=== PATIENT | male | born 1970 | race Caucasian/White ===

== ENCOUNTER 2020-12-17 14:22 | Inpatient (IN) | payer MEDICAID, OTHER ==
[~2020-12-17] VITALS: Ht 180.3 cm; Wt 80.3 kg
[~2020-12-17 14:22] MED LIST: HYDR-3972 PO; dextrose 50%-water 50ml dispensing syringe IV ONE
[2020-12-17] MEDS ORDERED: acetaminophen 650mg rectal suppository RC STA (15:05)
[2020-12-17] MEDS ORDERED: normal saline 1000ML IV soln IV ONE (15:05)
--- NOTE | 2020-12-17 15:10 | NUR ---
PT MOVED FROM BED 15 AFTER GUPPY BREATHING, PT IN BED 3, RT PAGED AND AT BEDSIDE.
--- NOTE | 2020-12-17 15:14 | NUR ---
PT BAGGED 100%, BP 165/141 133 81% BAGGED AT 100%. DR GARZA ORDERED ETOMIDATE 20 SUCS 100 1516 ETOMIDATE 20MG, SUCS 100 1518 INTUBATE WITH BOUGIE 1519 INTUBATED 8 TUBE, 23 AT GUMS, BILATERAL BREATH SOUNDS.
[2020-12-17] MEDS ORDERED: piperacillin/tazo 3.375gm/50ml 50 ML IV ONE (15:20)
[2020-12-17] MEDS ORDERED: normal saline 1000ML IV soln IVB ONE (15:25)
[2020-12-17] MEDS ORDERED: NORepinephrine 8mg/ 250ml NS 250 ML IV ONE ×3 (15:33→19:31)
--- NOTE | 2020-12-17 15:35 | NUR ---
LAURY NEAL TRIED TO DO EXAM
[2020-12-17 15:43] LABS: ABG BASE EXCESS -7.1 mmol/L (-2.0-2.0); ABG HCO3 19.6 mmol/L (22.0-26.0); ABG OXYGEN SATURATION 93.1 % (94-97); ABG PCO2 (T) 43.8 mmHg (35.0-48.0); ABG PO2 (T) 78.6 mmHg (75.0-100.0); FCOHb 0.3 % (0.0-3.9); FMetHb 0.5 % (0.0-1.5); FO2Hb 92.4 % (94-97); PEEP 5 cm H2O; RESPIRATORY RATE 18 b/min; TIDAL VOLUME 450 mL; TOTAL HEMOGLOBIN 12.9 G/dl (14.0-18.0)
--- NOTE | 2020-12-17 16:05 | NUR ---
VERBAL ORDER BY DR MILLER FOR PROPOPHOL GTT FOR SEDATION.
[2020-12-17] MEDS ORDERED: propofol 1000mg/100ml bottle 100 ML IV ONE ×2 (16:09→19:02)
[2020-12-17 16:25] LABS: HEMATOCRIT 42.8 % (42.0-52.0); HEMOGLOBIN 14.2 g/dl (14.0-17.9); MEAN CORPUSCULAR HGB CONC 33.2 g/dL (33.0-36.5); NEUTROPHILS # (AUTO) 3.7 X10'3 (1.8-7.7); WHITE BLOOD COUNT 6.7 X10'3 (4.5-11.0)
[2020-12-17 16:26] LABS: BASOPHILS % (AUTO) 0.6 % (0-1); EOSINOPHILS % (AUTO) 0.4 % (0-6); LYMPHOCYTES # (AUTO) 2.4 X10'3 (1.1-4.8); LYMPHOCYTES % (AUTO) 35.5 % (21-51); MEAN CORPUSCULAR HEMOGLOBIN 30.7 PG (27.0-31.0); MEAN CORPUSCULAR VOLUME 92.4 FL (78-98); MONOCYTES # (AUTO) 0.5 X10'3 (0-0.9); NEUTROPHILS % (AUTO) 55.5 % (42-75); PLATELET COUNT 214 X10'3 (140-440); RED BLOOD COUNT 4.63 X10'6 (4.70-6.10); RED CELL DISTRIBUTION WIDTH 15.2 % (11.5-14.5)
[2020-12-17 16:34] LABS: ALANINE AMINOTRANSFERASE 154 U/L (12-78); ALBUMIN 3.8 G/DL (3.4-5.0); ALKALINE PHOSPHATASE 79 IU/L (46-116); ANION GAP 12 (8-16); ASPARTATE AMINO TRANSFERASE 95 U/L (10-37); BILIRUBIN,TOTAL 0.5 MG/DL (0.1-1.0); BLOOD UREA NITROGEN 30 MG/DL (7-18); BUN/CREATININE RATIO 14.8 (5.4-32.0); CALCIUM 7.7 MG/DL (8.5-10.1); CHLORIDE 111 MMOL/L (99-107); CREATININE 2.03 MG/DL (0.60-1.10); ETHANOL < 0.010 GM/DL (0.0-0.010); GLUCOSE 50 MG/DL (70-104); SODIUM 146 MMOL/L (135-145); TOTAL CARBON DIOXIDE 22.9 MMOL/L (24-32); TOTAL PROTEIN 7.7 G/DL (6.4-8.2); eGFR 35 ML/MIN
[2020-12-17 16:35] LABS: ACETAMINOPHEN < 2.0 UG/ML (10-30)
[2020-12-17 16:37] LABS: POTASSIUM 7.3 MMOL/L (3.5-5.1)
[2020-12-17] MEDS ORDERED: albuterol 2.5 MG/3 ML nebule NEB ONE (16:40)
[2020-12-17] MEDS ORDERED: calcium chloride 100 MG/1 ML inj IV ONE ×2 (16:40→16:55)
[2020-12-17] MEDS ORDERED: insulin regular, human U-100 3ml vial - multi-dose IV ONE (16:40)
[2020-12-17] MEDS ORDERED: dextrose 50%-water 50ml dispensing syringe IV ONE (16:40)
[2020-12-17 16:50] LABS: HYPERSEGMENTED NEUTROPHILS 1+; PLATELET ESTIMATE NORMAL; TOTAL CELLS COUNTED 100
[2020-12-17] MEDS ORDERED: hydrocortisone sod succ/PF 100mg/2ml inj. IV ONE (17:00)
[2020-12-17] MEDS ORDERED: midazolam 100mg in NS 100ml 100 ML IV PRN (17:00)
[2020-12-17] MEDS ORDERED: albuterol 2.5 MG/3 ML nebule ONE (17:42)
[2020-12-17] MEDS: sodium bicarbonate (8.4%) inj. 100 MEQ in dextrose 5%-water 1,000 ML IV SCH ×3 (17:55→19:56)
[2020-12-17 18:46] LABS: CREATINE KINASE 19392 U/L (39-308)
[2020-12-17 18:47] LABS: CLARITY,URINE CLOUDY (Clear); COLOR,URINE AMBER (Yellow); GLUCOSE, URINE NEGATIVE (Neg); KETONES,URINE TRACE mg/dl (Neg); LEUKOCYTE ESTERASE ,URINE NEGATIVE (Neg); NITRITES, URINE NEGATIVE (Neg); OCCULT BLOOD,URINE LARGE (Neg); PH,URINE 5.5 (4.8-8.0); PROTEIN,URINE >=300 mg/dl (Neg)
[2020-12-17 18:52] LABS: UA COLLECTION TYPE OTHER
[2020-12-17 18:57] LABS: AMORPHOUS URATES 4+; RBC,URINE 20-50 /HPF (0-2); WBC,URINE 0-4 /HPF (0-4)
[2020-12-17 18:58] LABS: SODIUM,URINE RANDOM 98 MEQ/L; URINE AMPHETAMINE SCREEN POSITIVE (Neg); URINE BARBITUATE SCREEN NEGATIVE (Neg); URINE BENZODIAZEPINES SCREEN POSITIVE (Neg); URINE CANNABINOID SCREEN POSITIVE (Neg); URINE COCAINE SCREEN NEGATIVE (Neg); URINE METHADONE SCREEN NEGATIVE (Neg); URINE OPIATE SCREEN NEGATIVE (Neg); URINE PHENCYCLIDINE SCREEN NEGATIVE (Neg)
[2020-12-17 18:59] LABS: BACTERIA,URINE FEW /HPF (Neg); COARSE GRANULAR CAST 0-3 /LPF (NEGATIVE); MUCUS STRANDS FEW /LPF (Neg); SQUAMOUS EPITHELIAL CELL,UR FEW /LPF (FEW); TOTAL PROTEIN,URINE RANDOM 351.9 MG/DL; TRANSITIONAL EPI CELLS,URINE FEW /HPF
[2020-12-17 19:00] LABS: SPERM FEW /HPF (NEGATIVE)
--- NOTE | 2020-12-17 20:03 | NUR ---
TELEINTENSIVIST PATI CONTACTED SECONDARY TO HAVING NO ADMIT ORDERS. HE REQUESTS THE CAMERA BE PUT IN THE ROOM AND HE WILL DO ADMISSION. THE CAMERA IS CURRENTLY IN RM 1 AND IN USE BUT WILL BE MOVED TO PTS ROOM SOON IT IS AVAILABLE.
[2020-12-17] MEDS ORDERED: fentaNYL/PF 50MCG/1 ML 2ML syringe IV PRN (20:30)
--- NOTE | 2020-12-17 20:58 | NUR ---
Patient in ER. I have received report from FAY Lord and had the opportunity to ask questions. Patient to have repeat labs drawn and will go for a head CT before coming to ICU.
[2020-12-17 20:59] LABS: ABG BASE EXCESS -1.9 mmol/L (-2.0-2.0); ABG HCO3 23.1 mmol/L (22.0-26.0); ABG OXYGEN SATURATION 98.9 % (94-97); ABG PCO2 (T) 39.7 mmHg (35.0-48.0); ABG PO2 (T) 185.2 mmHg (75.0-100.0); ALLEN'S TEST Modified; FCOHb 0.3 % (0.0-3.9); FMetHb 0.3 % (0.0-1.5); FO2Hb 98.3 % (94-97); PATIENT TEMPERATURE 36.6; PEEP 5 cm H2O; RESPIRATORY RATE 18 b/min; TIDAL VOLUME 450 mL; TOTAL HEMOGLOBIN 14.8 G/dl (14.0-18.0)
[2020-12-17] MEDS ORDERED: sodium bicarbonate (8.4%) inj. 100 MEQ in dextrose 5%-water 1,000 ML IV SCH (21:00)
--- NOTE | 2020-12-17 21:35 | NUR ---
Patent arrived via gurney with DIRECTOR HEMATOLOGY, educational technology coordinator and RT at bedside. Patient transferred to ICU bed via slide board. Patient with 8.[address] secured at 24 cm at the lip. Patient with equal rise and fall of chest, bilateral lung sounds. Hypoactive bowel sounds. Temporal temp reading 35.8. Upon arrival from the ER Patient with Sodium Bicarb D5W infusing at 300ml/hr. Propofol infusing at 70mcg/kg/min, Versed at 5 mg/hr, Levophed infusing at 0.2mkg/kg/min.
[2020-12-17 22:00] VITALS: BP 121/86
[2020-12-17] MEDS: propofol 1000mg/100ml bottle 100 ML IV SCH (22:01)
[2020-12-17 22:13] LABS: ALBUMIN 2.7 G/DL (3.4-5.0); ANION GAP 12 (8-16); BLOOD UREA NITROGEN 36 MG/DL (7-18); BUN/CREATININE RATIO 15.7 (5.4-32.0); CHLORIDE 105 MMOL/L (99-107); GLUCOSE 283 MG/DL (70-104); POTASSIUM 3.8 MMOL/L (3.5-5.1); SODIUM 140 MMOL/L (135-145); TOTAL CARBON DIOXIDE 23.5 MMOL/L (24-32); eGFR 30 ML/MIN
--- NOTE | 2020-12-17 22:47 | NUR ---
OG tube placed with 350ml of brown stomach contents suctioned out. Esophageal temp probe placed with core temp of 34.5. Patient with bhatt catheter with dark brown/ red urine output. CVP transduced and zeroed at 13.
[2020-12-17 23:00] VITALS: BP 127/92
--- NOTE | 2020-12-17 23:00 | NUR ---
BELONGINGS PLACED IN LOCKER 23 IN OVERFLOW
--- NOTE | 2020-12-17 23:00 | NUR ---
Dr. Christine called Re: Lab work. Calcium 16, K resolved to 3.8, CK is still pending and will most likely be high per cath lab nurse running that test. Patients Hyperthermia resolved and temp is currently 34.9. Normothermia is the goal now. MD reviewed CT of head, made MD aware of unequal pupils, no new orders at this time. Will place orders for change in fluid and labs for morning: ionized calcium, lactic acid, etc.
[2020-12-17 23:02] LABS: CREATINE KINASE 41339 U/L (39-308)
[2020-12-18] VITALS (24 sets, daily range): BP systolic 110–134; BP diastolic 78–89
[2020-12-18] MEDS: ringers solution, lacted 1,000 ML IV SCH ×4 (00:14→19:10)
[2020-12-18] MEDS: propofol 1000mg/100ml bottle 100 ML IV SCH ×3 (00:17→19:48)
[2020-12-18 03:32] LABS: ALBUMIN 2.8 G/DL (3.4-5.0); ANION GAP 12 (8-16); BLOOD UREA NITROGEN 42 MG/DL (7-18); BUN/CREATININE RATIO 17.9 (5.4-32.0); CALCIUM 6.4 MG/DL (8.5-10.1); CHLORIDE 103 MMOL/L (99-107); CREATININE 2.35 MG/DL (0.60-1.10); GLUCOSE 238 MG/DL (70-104); MAGNESIUM 2.4 MG/DL (1.5-2.4); PHOSPHORUS 3.5 MG/DL (2.3-4.5); POTASSIUM 3.1 MMOL/L (3.5-5.1); SODIUM 141 MMOL/L (135-145); TOTAL CARBON DIOXIDE 25.9 MMOL/L (24-32); TRIGLYCERIDES 66 MG/DL (20-135); eGFR 29 ML/MIN
[2020-12-18 03:55] LABS: ABG BASE EXCESS -2.5 mmol/L (-2.0-2.0); ABG PCO2 (T) 45.7 mmHg (35.0-48.0); ABG PO2 (T) 119.3 mmHg (75.0-100.0); FCOHb 0.3 % (0.0-3.9); FMetHb 0.5 % (0.0-1.5); FO2Hb 97.2 % (94-97); PATIENT TEMPERATURE 36.1; PEEP 5 cm H2O; RESPIRATORY RATE 18 b/min; TIDAL VOLUME 450 mL; TOTAL HEMOGLOBIN 15.5 G/dl (14.0-18.0)
[2020-12-18] MEDS ORDERED: dextrose 50%-water 50ml dispensing syringe IV PRN (04:05)
[2020-12-18] MEDS ORDERED: MESSAGE TO PHARMACY PO ONE (04:05)
[2020-12-18] MEDS ORDERED: glucagon, human recombinant 1mg kit SUBCUT PRN (04:05)
[2020-12-18] MEDS ORDERED: dextrose ORAL solution 15 GM/59 ML bottle PO PRN ×2 (04:05)
[2020-12-18] MEDS ORDERED: potassium Cl 20 mEq/100mL bag IV ONE ×2 (04:05)
[2020-12-18 04:12] LABS: CREATINE KINASE 3911 U/L (39-308)
[2020-12-18 04:20] LABS: BASOPHILS % (AUTO) 0.1 % (0-1); EOSINOPHILS % (AUTO) 0 % (0-6); HEMATOCRIT 44.3 % (42.0-52.0); HEMOGLOBIN 14.8 g/dl (14.0-17.9); LYMPHOCYTES # (AUTO) 0.3 X10'3 (1.1-4.8); LYMPHOCYTES % (AUTO) 3.6 % (21-51); MEAN CORPUSCULAR HEMOGLOBIN 30.9 PG (27.0-31.0); MEAN CORPUSCULAR HGB CONC 33.3 g/dL (33.0-36.5); MEAN CORPUSCULAR VOLUME 92.6 FL (78-98); MEAN PLATELET VOLUME 7.8 FL (7.4-10.4); MONOCYTES # (AUTO) 1.1 X10'3 (0-0.9); MONOCYTES % (AUTO) 14.5 % (2-12); NEUTROPHILS # (AUTO) 6.1 X10'3 (1.8-7.7); NEUTROPHILS % (AUTO) 81.8 % (42-75); RED BLOOD COUNT 4.78 X10'6 (4.70-6.10); RED CELL DISTRIBUTION WIDTH 15.9 % (11.5-14.5); WHITE BLOOD COUNT 7.5 X10'3 (4.5-11.0)
[2020-12-18 04:51] LABS: PLATELET COUNT 62 X10'3 (140-440)
[2020-12-18] MEDS: CALCIUM GLUC 1gm/50ml NACL,iso 50 ML IV SCH ×2 (05:06→05:45)
[2020-12-18] MEDS: insulin Lispro (HumaLOG) vial - multi-dose SQ SCH ×3 (05:35→20:00)
--- NOTE | 2020-12-18 06:40 | NUR ---
Problems reprioritized. Patient report given, questions answered & plan of care reviewed with FAY Louise.
[2020-12-18] MEDS: pantoprazole 40 MG vial IV SCH (07:24)
[2020-12-18] MEDS ORDERED: VANCOMYCIN 1GM/200ML IVPB 200 ML IV SCH (08:00)
[2020-12-18] MEDS ORDERED: enoxaparin 30mg/0.3ml syringe SUBCUT SCH (08:00)
--- NOTE | 2020-12-18 10:35 | NUR ---
Initial: Pt found down in library bathroom now intubated admit DX hyperthermia w/ possible seizures, heat stroke/exhaustion, or malignant hyperthermia per MD note. OG in place; TF recs below in case prolonged intubation using IBW as pending scaled wt this admit. Will continue to monitor for nutrition support needs on vent. Rec: 1. IF TF; Vital AF at 75ml/hr goal; monitor for adjustment needs pending propofol rates and scaled wt 2. IF TF; additional water flush 150ml Q4H 3. IF TF; PALB Q M/; daily wts 4. routine bowel care 5. upon extubation; advance diet as medically indicated to regular following OPENSTACK DEVELOPER BSS Addendum: 12/18/20 at [address] Amended: Links added.
[2020-12-18] MEDS ORDERED: acetaminophen 325mg rectal suppository RC PRN (11:30)
[2020-12-18] MEDS ORDERED: potassium Cl 40MEQ/1/2NS 520ml 520 ML IV ONE (11:35)
[2020-12-18] MEDS: CefTRIAXone 2gm/D5W 50ml BAG 50 ML IV SCH (13:02)
[2020-12-18] MEDS: VANCOMYCIN 750MG IV in NS 250 ML IV SCH (13:04)
[2020-12-18] MEDS: sodium bicarbonate (8.4%) inj. 50 MEQ in sodium chloride 0.45% 1,000 ML IV SCH ×2 (13:04→19:46)
[2020-12-18] MEDS: calcium chloride inj. 1,000 MG in normal saline 100ml IV soln 100 ML IV SCH (16:57)
[2020-12-18 17:02] LABS: BASOPHILS % (AUTO) 0.1 % (0-1); EOSINOPHILS % (AUTO) 0 % (0-6); HEMATOCRIT 40.6 % (42.0-52.0); HEMOGLOBIN 13.5 g/dl (14.0-17.9); LYMPHOCYTES # (AUTO) 0.6 X10'3 (1.1-4.8); LYMPHOCYTES % (AUTO) 5.2 % (21-51); MEAN CORPUSCULAR HEMOGLOBIN 30.5 PG (27.0-31.0); MEAN CORPUSCULAR HGB CONC 33.2 g/dL (33.0-36.5); MEAN CORPUSCULAR VOLUME 91.8 FL (78-98); MEAN PLATELET VOLUME 7.7 FL (7.4-10.4); MONOCYTES % (AUTO) 8.4 % (2-12); NEUTROPHILS # (AUTO) 9.9 X10'3 (1.8-7.7); NEUTROPHILS % (AUTO) 86.3 % (42-75); RED BLOOD COUNT 4.42 X10'6 (4.70-6.10); RED CELL DISTRIBUTION WIDTH 15.9 % (11.5-14.5); WHITE BLOOD COUNT 11.5 X10'3 (4.5-11.0)
[2020-12-18 17:13] LABS: PLATELET COUNT 43 X10'3 (140-440)
[2020-12-18] MEDS: acetaminophen 650mg rectal suppository RC PRN (17:53)
--- NOTE | 2020-12-18 18:15 | NUR ---
Patient in room CICU 2013. I have received report from AFY Louise and had the opportunity to ask questions and assume patient care.
[2020-12-18] MEDS ORDERED: enoxaparin 40mg/0.4ml syringe SUBCUT SCH (20:00)
--- NOTE | 2020-12-18 23:00 | NUR ---
Patients urine output declining over last few hours. Dr. Pitts called. MD to place orders after reviewing chart.
[2020-12-18] MEDS ORDERED: ringers solution, lacted 1,000 ML IV ONE (23:15)
[2020-12-19] VITALS (24 sets, daily range): BP systolic 116–142; BP diastolic 81–96
[2020-12-19] MEDS: calcium chloride inj. 1,000 MG in normal saline 100ml IV soln 100 ML IV SCH ×3 (00:26→16:40)
[2020-12-19] MEDS: sodium bicarbonate (8.4%) inj. 50 MEQ in sodium chloride 0.45% 1,000 ML IV SCH ×5 (01:35→23:24)
[2020-12-19] MEDS: ringers solution, lacted 1,000 ML IV SCH ×4 (01:50→21:50)
[2020-12-19] MEDS: insulin Lispro (HumaLOG) vial - multi-dose SQ SCH ×4 (02:00→20:00)
[2020-12-19] MEDS: mineral oil/petrolatum ophthal oint EACHEYE SCH ×4 (02:05→20:52)
[2020-12-19 02:56] LABS: BASOPHILS % (AUTO) 0 % (0-1); EOSINOPHILS % (AUTO) 0 % (0-6); HEMOGLOBIN 13.4 g/dl (14.0-17.9); LYMPHOCYTES # (AUTO) 0.8 X10'3 (1.1-4.8); LYMPHOCYTES % (AUTO) 4.9 % (21-51); MEAN CORPUSCULAR HEMOGLOBIN 30.3 PG (27.0-31.0); MEAN CORPUSCULAR HGB CONC 33.4 g/dL (33.0-36.5); MEAN CORPUSCULAR VOLUME 90.7 FL (78-98); MEAN PLATELET VOLUME 8.9 FL (7.4-10.4); MONOCYTES % (AUTO) 5.8 % (2-12); NEUTROPHILS # (AUTO) 14.7 X10'3 (1.8-7.7); NEUTROPHILS % (AUTO) 89.3 % (42-75); RED BLOOD COUNT 4.41 X10'6 (4.70-6.10); RED CELL DISTRIBUTION WIDTH 15.8 % (11.5-14.5); WHITE BLOOD COUNT 16.5 X10'3 (4.5-11.0)
[2020-12-19 03:03] LABS: PLATELET COUNT 34 X10'3 (140-440)
[2020-12-19 03:13] LABS: ANION GAP 15 (8-16); BLOOD UREA NITROGEN 76 MG/DL (7-18); BUN/CREATININE RATIO 16.5 (5.4-32.0); CALCIUM 7.2 MG/DL (8.5-10.1); CHLORIDE 105 MMOL/L (99-107); CREATININE 4.62 MG/DL (0.60-1.10); GLUCOSE 80 MG/DL (70-104); MAGNESIUM 1.9 MG/DL (1.5-2.4); PHOSPHORUS 7.3 MG/DL (2.3-4.5); POTASSIUM 5.1 MMOL/L (3.5-5.1); SODIUM 141 MMOL/L (135-145); TOTAL CARBON DIOXIDE 21.5 MMOL/L (24-32); eGFR 13 ML/MIN
[2020-12-19] MEDS ORDERED: furosemide 10 MG/1 ML 10ml inj IV ONE (03:35)
[2020-12-19 03:54] LABS: CREATINE KINASE 3325 U/L (39-308)
--- NOTE | 2020-12-19 04:00 | NUR ---
Rounds with Dr. Pitts. Addressed current labs, critical Platelet of 34. MD to discontinue Lovenox. decreased urine output addressed, to place order for Lasix.
[2020-12-19 04:17] LABS: ABG BASE EXCESS -5.9 mmol/L (-2.0-2.0); ABG HCO3 18.7 mmol/L (22.0-26.0); ABG OXYGEN SATURATION 98.1 % (94-97); ABG PCO2 (T) 34.2 mmHg (35.0-48.0); ABG PO2 (T) 124.4 mmHg (75.0-100.0); FCOHb 0.3 % (0.0-3.9); FMetHb 0.3 % (0.0-1.5); FO2Hb 97.5 % (94-97); PATIENT TEMPERATURE 36.9; PEEP 5 cm H2O; RESPIRATORY RATE 18 b/min; TIDAL VOLUME 450 mL; TOTAL HEMOGLOBIN 14.2 G/dl (14.0-18.0)
--- NOTE | 2020-12-19 06:31 | NUR ---
Problems reprioritized. Patient report given, questions answered & plan of care reviewed with FAY Head.
[2020-12-19 06:37] LABS: PLATELET ESTIMATE DECREASED; TOTAL CELLS COUNTED 100
[2020-12-19] MEDS: pantoprazole 40 MG vial IV SCH (07:17)
[2020-12-19] MEDS: CefTRIAXone 2gm/D5W 50ml BAG 50 ML IV SCH (07:22)
--- NOTE | 2020-12-19 12:49 | NUR ---
TF Consult: Pt remains intubated w/ TF to start today w/ pt potential need for HD in future if AIDA continues to worsen per respiratory clinician at rounds. Updated TF recs below given needs on vent using first scaled wt this admit. Will monitor for TF tolerance and adjustment needs. Rec: 1. Continuous TF per MD using Vital AF at 85ml/hr goal; to provide 2040ml volume, 2448 kcals, 1652ml free water, and 153g protein 2. additional water flush per MD w/ potential HD near future 3. PALB Q /; daily wts 4. routine bowel care; IF HD phos binder if MD agreeable w/ serum Phos 7.3 this AM 5. upon extubation; advance diet as medically indicated to regular following MARINE TECHNICIAN BSS Addendum: 12/19/20 at [address] Amended: Links added.
[2020-12-19 13:30] LABS: PREALBUMIN 14.9 MG/DL (19-36)
[2020-12-19] MEDS: VANCOMYCIN 750MG IV in NS 250 ML IV SCH (13:58)
--- NOTE | 2020-12-19 16:24 | NUR ---
[facility] called, record started, spoke with Joseph Edgar Reference Number [id number]
[2020-12-19] MEDS: dextrose 50%-water 50ml dispensing syringe IV PRN (17:01)
[2020-12-19] MEDS: acetaminophen 650mg rectal suppository RC PRN (17:11)
--- NOTE | 2020-12-19 18:05 | NUR ---
Patient in room CICU 2013. I have received report from FAY Louise and had the opportunity to ask questions and assume patient care. Patient is intubated on the ventilator at 35% FiO2 AC V/C PEEP 5. Patient is over breathing the ventilator at a rate in the 30's. Lung sound are course. Patient is moves head spontaneously, will not follow commands or withdrawal from pain stimuli. Patient with strong cough with ET tube suction. Pupils are equal and reactive to light at 2 mm. Swelling noted to right sclera.
[2020-12-19] MEDS: lactobacillus rhamnosus 10,000 MMU CELLS/CAPSULE PO SCH (20:52)
[2020-12-19 21:52] LABS: HEMATOCRIT 35.6 % (42.0-52.0); MEAN CORPUSCULAR HEMOGLOBIN 30.4 PG (27.0-31.0); MEAN CORPUSCULAR HGB CONC 33.8 g/dL (33.0-36.5); MEAN CORPUSCULAR VOLUME 89.9 FL (78-98); MEAN PLATELET VOLUME 9.5 FL (7.4-10.4); RED BLOOD COUNT 3.96 X10'6 (4.70-6.10); RED CELL DISTRIBUTION WIDTH 15.6 % (11.5-14.5)
[2020-12-19 22:18] LABS: PLATELET COUNT 39 X10'3 (140-440)
--- NOTE | 2020-12-19 23:00 | NUR ---
Change in mental status: Patient opens eyes to verbal stimuli during nursing care. Patient with positive cough and gag with oral care. Patient does not follow commands, localize or withdrawal from painful stimuli.
[2020-12-20] VITALS (23 sets, daily range): BP systolic 126–143; BP diastolic 83–95
--- NOTE | 2020-12-20 01:45 | NUR ---
[facility] called for update of patients condition.
[2020-12-20] MEDS: insulin Lispro (HumaLOG) vial - multi-dose SQ SCH ×4 (02:00→20:00)
[2020-12-20] MEDS: mineral oil/petrolatum ophthal oint EACHEYE SCH ×4 (02:59→21:52)
[2020-12-20 03:35] LABS: BASOPHILS % (AUTO) 0.1 % (0-1); EOSINOPHILS % (AUTO) 0.1 % (0-6); HEMATOCRIT 34.4 % (42.0-52.0); HEMOGLOBIN 11.6 g/dl (14.0-17.9); LYMPHOCYTES # (AUTO) 0.7 X10'3 (1.1-4.8); LYMPHOCYTES % (AUTO) 3.5 % (21-51); MEAN CORPUSCULAR HEMOGLOBIN 30.7 PG (27.0-31.0); MEAN CORPUSCULAR HGB CONC 33.7 g/dL (33.0-36.5); MEAN CORPUSCULAR VOLUME 91.1 FL (78-98); MEAN PLATELET VOLUME 9.5 FL (7.4-10.4); MONOCYTES # (AUTO) 0.7 X10'3 (0-0.9); MONOCYTES % (AUTO) 3.5 % (2-12); NEUTROPHILS # (AUTO) 18.1 X10'3 (1.8-7.7); NEUTROPHILS % (AUTO) 92.8 % (42-75); RED BLOOD COUNT 3.78 X10'6 (4.70-6.10); RED CELL DISTRIBUTION WIDTH 15.3 % (11.5-14.5); WHITE BLOOD COUNT 19.5 X10'3 (4.5-11.0)
[2020-12-20 03:38] LABS: PLATELET COUNT 42 X10'3 (140-440)
[2020-12-20 04:00] LABS: ALBUMIN 1.8 G/DL (3.4-5.0); ALBUMIN/GLOBULIN RATIO 0.6 (1.1-1.5); ALKALINE PHOSPHATASE 67 IU/L (46-116); ANION GAP 13 (8-16); BILIRUBIN,TOTAL 3.1 MG/DL (0.1-1.0); BLOOD UREA NITROGEN 110 MG/DL (7-18); BUN/CREATININE RATIO 15.7 (5.4-32.0); CALCIUM 6.1 MG/DL (8.5-10.1); CHLORIDE 101 MMOL/L (99-107); CREATININE 7.01 MG/DL (0.60-1.10); GLUCOSE 96 MG/DL (70-104); MAGNESIUM 1.9 MG/DL (1.5-2.4); PHOSPHORUS 7.1 MG/DL (2.3-4.5); POTASSIUM 5.6 MMOL/L (3.5-5.1); SODIUM 136 MMOL/L (135-145); TOTAL CARBON DIOXIDE 22.2 MMOL/L (24-32); TOTAL PROTEIN 4.7 G/DL (6.4-8.2); eGFR 8 ML/MIN
[2020-12-20 04:11] LABS: ALANINE AMINOTRANSFERASE 2248 U/L (12-78); ASPARTATE AMINO TRANSFERASE 1961 U/L (10-37)
[2020-12-20 04:15] LABS: ABG HCO3 20.3 mmol/L (22.0-26.0); ABG PCO2 (T) 31.9 mmHg (35.0-48.0); ABG PO2 (T) 116.5 mmHg (75.0-100.0); FCOHb 0.3 % (0.0-3.9); FMetHb 0.2 % (0.0-1.5); FO2Hb 97.5 % (94-97); PATIENT TEMPERATURE 37.6; PEEP 5 cm H2O; RESPIRATORY RATE 18 b/min; TIDAL VOLUME 450 mL; TOTAL HEMOGLOBIN 12.2 G/dl (14.0-18.0)
[2020-12-20 04:50] LABS: CREATINE KINASE 38659 U/L (39-308)
[2020-12-20] MEDS ORDERED: CALCIUM GLUC 1gm/50ml NACL,iso 50 ML IV ONE (05:00)
--- NOTE | 2020-12-20 05:09 | NUR ---
Rounds with Dr. Christine, Labs, plan of care, change in patients mental status - improving now withdrawals from pain - reviewed. MD to place orders for calcium replacement and additional Protonix dose for coffee ground stomach contents from OG tube.
--- NOTE | 2020-12-20 06:13 | NUR ---
Problems reprioritized. Patient report given, questions answered & plan of care reviewed with FAY Louise.
[2020-12-20] MEDS ORDERED: albumin (human) 25% 100ml IV 100 ML IV PRN (07:05)
[2020-12-20] MEDS ORDERED: EPOETIN ALFA-EPBX 20,000 UNIT/ML 1 ML MDV IV ONE (07:05)
[2020-12-20] MEDS ORDERED: heparin 1,000 units/ml 10ml inj HE ONE ×2 (07:10)
[2020-12-20 07:21] LABS: BURR CELLS 1+; LARGE PLATELETS FEW; PLATELET ESTIMATE DECREASED
[2020-12-20] MEDS: lactobacillus rhamnosus 10,000 MMU CELLS/CAPSULE PO SCH ×2 (08:28→21:52)
[2020-12-20] MEDS: pantoprazole 40 MG vial IV SCH ×2 (08:28→21:52)
[2020-12-20] MEDS: CefTRIAXone 2gm/D5W 50ml BAG 50 ML IV SCH (08:28)
[2020-12-20] MEDS: docusate sod 100mg capsule PO SCH ×2 (12:14→20:00)
[2020-12-20] MEDS: sodium bicarbonate (8.4%) inj. 50 MEQ in sodium chloride 0.45% 1,000 ML IV SCH ×2 (12:16→19:35)
[2020-12-20] MEDS: dextrose 50%-water 50ml dispensing syringe IV PRN (12:27)
[2020-12-20] MEDS: acetaminophen 650mg rectal suppository RC PRN (14:41)
--- NOTE | 2020-12-20 18:10 | NUR ---
Patient in room CICU 2013. I have received report from FAY Espinosa and had the opportunity to ask questions and assume patient care. Patient is Intubated and on the ventilator CPAP/ PS rate of 24 fiO2 30%, PEEP 5. Patient is currently receiving hemodialysis.
--- NOTE | 2020-12-20 18:40 | NUR ---
health information technician paged, will be in tonight.
[2020-12-20] MEDS ORDERED: polyethylene glycol 3350 17gm powd pack PO SCH (21:00)
[2020-12-20 21:23] LABS: ALBUMIN 1.7 G/DL (3.4-5.0); ALBUMIN/GLOBULIN RATIO 0.5 (1.1-1.5); ALKALINE PHOSPHATASE 71 IU/L (46-116); ANION GAP 9 (8-16); BILIRUBIN,TOTAL 2.8 MG/DL (0.1-1.0); BLOOD UREA NITROGEN 67 MG/DL (7-18); BUN/CREATININE RATIO 13.5 (5.4-32.0); CALCIUM 6.2 MG/DL (8.5-10.1); CHLORIDE 102 MMOL/L (99-107); CREATININE 4.96 MG/DL (0.60-1.10); GLUCOSE 98 MG/DL (70-104); POTASSIUM 4.6 MMOL/L (3.5-5.1); SODIUM 139 MMOL/L (135-145); TOTAL CARBON DIOXIDE 28.5 MMOL/L (24-32); TOTAL PROTEIN 4.8 G/DL (6.4-8.2); eGFR 12 ML/MIN
[2020-12-20 21:25] LABS: ABG BASE EXCESS 0.1 mmol/L (-2.0-2.0); ABG HCO3 22.3 mmol/L (22.0-26.0); ABG OXYGEN SATURATION 93.1 % (94-97); ABG PCO2 (T) 28.9 mmHg (35.0-48.0); ABG PO2 (T) 68.4 mmHg (75.0-100.0); ALLEN'S TEST Modified; FCOHb 0.1 % (0.0-3.9); PATIENT TEMPERATURE 37.5; TIDAL VOLUME 585 mL; TOTAL HEMOGLOBIN 11.1 G/dl (14.0-18.0)
[2020-12-20 21:43] LABS: ALANINE AMINOTRANSFERASE 1564 U/L (12-78); ASPARTATE AMINO TRANSFERASE 1164 U/L (10-37)
[2020-12-20] MEDS ORDERED: dextrose ORAL solution 15 GM/59 ML bottle NG PRN ×2 (22:09)
[2020-12-20] MEDS ORDERED: polyethylene glycol 3350 17gm powd pack NG SCH (22:17)
[2020-12-20] MEDS ORDERED: dextrose ORAL solution 15 GM/59 ML bottle OGT PRN ×2 (22:21)
[2020-12-21] VITALS (24 sets, daily range): BP systolic 118–133; BP diastolic 45–94
--- NOTE | 2020-12-21 00:19 | NUR ---
[facility] called for update.
[2020-12-21] MEDS: insulin Lispro (HumaLOG) vial - multi-dose SQ SCH ×2 (02:00→08:00)
[2020-12-21] MEDS: mineral oil/petrolatum ophthal oint EACHEYE SCH ×4 (02:51→21:22)
[2020-12-21 03:06] LABS: ABG BASE EXCESS 2.2 mmol/L (-2.0-2.0); ABG OXYGEN SATURATION 97.6 % (94-97); ABG PCO2 (T) 33.4 mmHg (35.0-48.0); ABG PO2 (T) 113.7 mmHg (75.0-100.0); FCOHb 0.1 % (0.0-3.9); FMetHb 0.1 % (0.0-1.5); FO2Hb 97.4 % (94-97); PATIENT TEMPERATURE 37.7; PEEP 5 cm H2O; TIDAL VOLUME 599 mL; TOTAL HEMOGLOBIN 10.5 G/dl (14.0-18.0)
[2020-12-21 03:10] LABS: BASOPHILS % (AUTO) 0.2 % (0-1); EOSINOPHILS % (AUTO) 0.1 % (0-6); HEMATOCRIT 27.8 % (42.0-52.0); HEMOGLOBIN 9.6 g/dl (14.0-17.9); LYMPHOCYTES # (AUTO) 0.5 X10'3 (1.1-4.8); LYMPHOCYTES % (AUTO) 3.9 % (21-51); MEAN CORPUSCULAR HEMOGLOBIN 30.6 PG (27.0-31.0); MEAN CORPUSCULAR HGB CONC 34.5 g/dL (33.0-36.5); MEAN CORPUSCULAR VOLUME 88.7 FL (78-98); MEAN PLATELET VOLUME 8.9 FL (7.4-10.4); MONOCYTES # (AUTO) 0.5 X10'3 (0-0.9); MONOCYTES % (AUTO) 3.5 % (2-12); NEUTROPHILS # (AUTO) 12.2 X10'3 (1.8-7.7); NEUTROPHILS % (AUTO) 92.3 % (42-75); RED BLOOD COUNT 3.14 X10'6 (4.70-6.10); RED CELL DISTRIBUTION WIDTH 15.3 % (11.5-14.5); WHITE BLOOD COUNT 13.2 X10'3 (4.5-11.0)
[2020-12-21 03:17] LABS: PLATELET COUNT 49 X10'3 (140-440)
[2020-12-21 03:29] LABS: ALBUMIN 1.7 G/DL (3.4-5.0); ALBUMIN/GLOBULIN RATIO 0.6 (1.1-1.5); ALKALINE PHOSPHATASE 68 IU/L (46-116); ANION GAP 11 (8-16); ASPARTATE AMINO TRANSFERASE 986 U/L (10-37); BILIRUBIN,TOTAL 2.7 MG/DL (0.1-1.0); BLOOD UREA NITROGEN 78 MG/DL (7-18); BUN/CREATININE RATIO 13.8 (5.4-32.0); CHLORIDE 100 MMOL/L (99-107); CREATININE 5.65 MG/DL (0.60-1.10); GLUCOSE 104 MG/DL (70-104); MAGNESIUM 1.9 MG/DL (1.5-2.4); PHOSPHORUS 6.3 MG/DL (2.3-4.5); POTASSIUM 4.8 MMOL/L (3.5-5.1); SODIUM 138 MMOL/L (135-145); TOTAL CARBON DIOXIDE 26.7 MMOL/L (24-32); TOTAL PROTEIN 4.6 G/DL (6.4-8.2); eGFR 11 ML/MIN
[2020-12-21 03:35] LABS: CALCIUM 5.9 MG/DL (8.5-10.1)
--- NOTE | 2020-12-21 04:00 | NUR ---
Patient vomiting approximately 600-800ml of tube feed and stomach contents with ET tube in place during log roll to change bed linen. OG tube connected to low intermittent suction.
[2020-12-21 04:03] LABS: ALANINE AMINOTRANSFERASE 1387 U/L (12-78)
--- NOTE | 2020-12-21 04:42 | NUR ---
Rounds with Dr. Bocanegra. Patients mental status addressed. In last hour patient started to nod his head to questions. Per Dr. Bocanegra : hold tube feed for a few hours to determine if he will be extubated today. This came after patient had projectile vomiting around ET tube at 0400 with a turn to change linen. If patient is not extubated today restart tube feed. Current lab work addressed: MD to place order for calcium replacement.
[2020-12-21] MEDS: CALCIUM GLUC 1gm/50ml NACL,iso 50 ML IV SCH ×2 (05:29→07:19)
--- NOTE | 2020-12-21 06:13 | NUR ---
Problems reprioritized. Patient report given, questions answered & plan of care reviewed with FAY Stiles.
[2020-12-21] MEDS: lactobacillus rhamnosus 10,000 MMU CELLS/CAPSULE OGT SCH ×2 (08:00→21:21)
[2020-12-21] MEDS: docusate sodium 100mg/10ml UD cup NG SCH ×2 (08:00→21:21)
[2020-12-21] MEDS: pantoprazole 40 MG vial IV SCH ×2 (08:06→21:22)
[2020-12-21] MEDS: CefTRIAXone 2gm/D5W 50ml BAG 50 ML IV SCH (08:07)
[2020-12-21] MEDS ORDERED: albumin (human) 25% 100ml IV 100 ML IV PRN (11:20)
[2020-12-21] MEDS ORDERED: heparin 1,000 units/ml 10ml inj HE ONE ×2 (11:20)
[2020-12-21 11:29] LABS: CREATINE KINASE 24748 U/L (39-308)
[2020-12-21] MEDS: lactulose 20gm/30ml cup PO SCH ×2 (11:57→21:21)
[2020-12-21] MEDS ORDERED: VANCOMYCIN LEVEL IV ONE (12:30)
[2020-12-21] MEDS ORDERED: EPOETIN ALFA-EPBX 20,000 UNIT/ML 1 ML MDV IV ONE (16:10)
--- NOTE | 2020-12-21 18:30 | NUR ---
Patient in room CICU 2013. I have received report from Linsey APONTE and had the opportunity to ask questions and assume patient care.
[2020-12-21] MEDS: polyethylene glycol 3350 17gm powd pack OGT SCH (21:22)
--- NOTE | 2020-12-21 23:20 | NUR ---
Patient vomited during attempted position change.
--- NOTE | 2020-12-21 23:34 | NUR ---
commercial green building architect came, set og tube to suction with over 300 gastric contents aspirated.
[2020-12-22] VITALS (24 sets, daily range): BP systolic 120–137; BP diastolic 75–93
[2020-12-22] MEDS: lactulose 20gm/30ml cup PO SCH ×4 (02:00→21:09)
[2020-12-22 03:11] LABS: ALANINE AMINOTRANSFERASE 884 U/L (12-78); ALBUMIN 1.7 G/DL (3.4-5.0); ALBUMIN/GLOBULIN RATIO 0.5 (1.1-1.5); ALKALINE PHOSPHATASE 85 IU/L (46-116); ANION GAP 10 (8-16); ASPARTATE AMINO TRANSFERASE 628 U/L (10-37); BILIRUBIN,TOTAL 1.9 MG/DL (0.1-1.0); BLOOD UREA NITROGEN 67 MG/DL (7-18); BUN/CREATININE RATIO 12.6 (5.4-32.0); CALCIUM 6.4 MG/DL (8.5-10.1); CHLORIDE 101 MMOL/L (99-107); CREATININE 5.31 MG/DL (0.60-1.10); GLUCOSE 95 MG/DL (70-104); MAGNESIUM 2.2 MG/DL (1.5-2.4); PREALBUMIN 14.4 MG/DL (19-36); SODIUM 139 MMOL/L (135-145); TOTAL CARBON DIOXIDE 28.5 MMOL/L (24-32); eGFR 11 ML/MIN
--- NOTE | 2020-12-22 03:30 | NUR ---
Restarted tube feed at 20ml/hr
[2020-12-22] MEDS: mineral oil/petrolatum ophthal oint EACHEYE SCH ×4 (04:19→20:00)
[2020-12-22 04:28] LABS: ABG BASE EXCESS 3.4 mmol/L (-2.0-2.0); ABG HCO3 26.1 mmol/L (22.0-26.0); ABG OXYGEN SATURATION 97.4 % (94-97); ABG PCO2 (T) 32.4 mmHg (35.0-48.0); ABG PO2 (T) 98.4 mmHg (75.0-100.0); ALLEN'S TEST POSITIVE; FCOHb 0.6 % (0.0-3.9); FMetHb 0.2 % (0.0-1.5); FO2Hb 96.6 % (94-97); PATIENT TEMPERATURE 37.3; PEEP 5 cm H2O
--- NOTE | 2020-12-22 06:25 | NUR ---
Problems reprioritized. Patient report given, questions answered & plan of care reviewed with Myles APONTE and Emmanuel APONTE.
--- NOTE | 2020-12-22 06:50 | NUR ---
Patient in room CICU 2013. I have received report from Michelle Owens and had the opportunity to ask questions and assume patient care.
[2020-12-22] MEDS: insulin Lispro (HumaLOG) vial - multi-dose SQ SCH ×3 (08:00→20:00)
[2020-12-22] MEDS: pantoprazole 40 MG vial IV SCH ×2 (08:32→21:21)
[2020-12-22] MEDS: docusate sodium 100mg/10ml UD cup NG SCH ×2 (08:32→20:00)
[2020-12-22] MEDS: lactobacillus rhamnosus 10,000 MMU CELLS/CAPSULE OGT SCH ×2 (08:32→21:09)
[2020-12-22] MEDS: CefTRIAXone 2gm/D5W 50ml BAG 50 ML IV SCH (08:32)
--- NOTE | 2020-12-22 18:00 | NUR ---
Patient in room CICU 2013. I have received report from CAMILLA and had the opportunity to ask questions and assume patient care.
[2020-12-22] MEDS: polyethylene glycol 3350 17gm powd pack OGT SCH (21:00)
[2020-12-23] VITALS (24 sets, daily range): BP systolic 120–143; BP diastolic 60–85
[2020-12-23] MEDS: insulin Lispro (HumaLOG) vial - multi-dose SQ SCH ×2 (02:00→08:00)
[2020-12-23] MEDS: lactulose 20gm/30ml cup PO SCH ×2 (02:00→08:00)
[2020-12-23] MEDS: mineral oil/petrolatum ophthal oint EACHEYE SCH ×4 (02:14→20:00)
--- NOTE | 2020-12-23 03:50 | NUR ---
Corpak dislodged by patient approximately 5 cm. Able to advance back to original position without difficulty. Tube feeding off awaiting proper placement verification via x-ray.
[2020-12-23 04:02] LABS: BASOPHILS % (AUTO) 0.3 % (0-1); EOSINOPHILS % (AUTO) 0.5 % (0-6); HEMATOCRIT 24.2 % (42.0-52.0); HEMOGLOBIN 8.2 g/dl (14.0-17.9); LYMPHOCYTES # (AUTO) 0.4 X10'3 (1.1-4.8); LYMPHOCYTES % (AUTO) 6.9 % (21-51); MEAN CORPUSCULAR HEMOGLOBIN 30.7 PG (27.0-31.0); MEAN CORPUSCULAR HGB CONC 33.9 g/dL (33.0-36.5); MEAN CORPUSCULAR VOLUME 90.6 FL (78-98); MEAN PLATELET VOLUME 9.7 FL (7.4-10.4); MONOCYTES # (AUTO) 0.4 X10'3 (0-0.9); MONOCYTES % (AUTO) 5.8 % (2-12); NEUTROPHILS # (AUTO) 5.6 X10'3 (1.8-7.7); NEUTROPHILS % (AUTO) 86.5 % (42-75); PLATELET COUNT 81 X10'3 (140-440); RED BLOOD COUNT 2.68 X10'6 (4.70-6.10); RED CELL DISTRIBUTION WIDTH 15.1 % (11.5-14.5); WHITE BLOOD COUNT 6.5 X10'3 (4.5-11.0)
[2020-12-23 04:19] LABS: ALBUMIN 1.7 G/DL (3.4-5.0); ANION GAP 13 (8-16); BLOOD UREA NITROGEN 108 MG/DL (7-18); BUN/CREATININE RATIO 14.7 (5.4-32.0); CALCIUM 6.6 MG/DL (8.5-10.1); CHLORIDE 101 MMOL/L (99-107); CREATININE 7.33 MG/DL (0.60-1.10); GLUCOSE 94 MG/DL (70-104); MAGNESIUM 2.4 MG/DL (1.5-2.4); SODIUM 140 MMOL/L (135-145); TOTAL CARBON DIOXIDE 25.8 MMOL/L (24-32); eGFR 8 ML/MIN
--- NOTE | 2020-12-23 06:26 | NUR ---
Problems reprioritized. Patient report given, questions answered & plan of care reviewed with ANIYAH.
--- NOTE | 2020-12-23 06:29 | NUR ---
Patient in room CICU 2013. I have received report from Blank APONTE and had the opportunity to ask questions and assume patient care. Pt supine with HOB elevated > 30 degrees. CRM intact to BUE soft restraints. + BM. meticulous argelia care provided. pt unable to follow meaningful commands.
[2020-12-23] MEDS ORDERED: EPOETIN ALFA-EPBX 20,000 UNIT/ML 1 ML MDV IV ONE (06:40)
[2020-12-23] MEDS ORDERED: albumin (human) 25% 100ml IV 100 ML IV PRN (06:40)
[2020-12-23] MEDS ORDERED: heparin 1,000 units/ml 10ml inj HE ONE ×2 (06:45)
[2020-12-23] MEDS: docusate sodium 100mg/10ml UD cup NG SCH (08:00)
[2020-12-23] MEDS: CefTRIAXone 2gm/D5W 50ml BAG 50 ML IV SCH (08:04)
[2020-12-23] MEDS: pantoprazole 40 MG vial IV SCH (08:04)
--- NOTE | 2020-12-23 09:08 | NUR ---
New Corpak placed. radiology paged for KUB to ensure placement "RE: David Kahn: 2014. KUB needed to check placement of newly placed corpak. Thanks -Ivonne #[id number]"
--- NOTE | 2020-12-23 11:04 | NUR ---
OLU completed. Dr. Mariscal viewed xray on rounds and stated "yes go ahead and feed him through corpak." cryptographic clerk present and communicated necessity for change in formula and intentions that it would be completed fransico so feedings could start.
--- NOTE | 2020-12-23 11:28 | NUR ---
Reassessment: Pt has been started on dialysis and was extubated 12/22. Pt with ALOC post extubation. Corpak put in place, per OLU the Corpak tip is coiled in the fundus of the stomach. MD swan use of Corpak with this placement and adjustments to TF recommendations in view of extubation. See updated recommendations below. Per WOC note pt with stage II PU to left buttock. TF will provide additional protein to meet the demands of HD and wound healing, though pt would benefit from Jordi BID for additional wound healing needs if MD agreeable, will require a minimum of 320 mL water flush (160 mL BID) for administration. [facility] 12/22. Will continue to follow closely. Rec: 1. Continuous TF via NGT using Nepro at 55 mL/hr; to provide 1320 mL total volume/day, 2376 kcal, 107 g protein, and 960 mL water 2. Additional water flush per MD given dialysis 3. Consider Jordi BID for wound healing needs if MD agreeable given need of minimum 320 mL water (160 mL BID) for Jordi administration 4. PALB q /; daily wts 5. Phos binder if MD agreeable 6. Routine bowel care 5. Consider BSS with ST prior to diet advancement in view of ALOC; recommend renal diet Addendum: 12/23/20 at [address] Amended: Links added.
[2020-12-23] MEDS ORDERED: dextrose ORAL solution 15 GM/59 ML bottle CORPAK PRN ×2 (12:14→12:15)
[2020-12-23] MEDS ORDERED: LIDOcaine 1%/PF 5ML 10 MG/ML VIAL ONE (13:34)
[2020-12-23] MEDS ORDERED: midazolam 1 mg/ML 2ml injection ONE ×2 (13:34→14:51)
[2020-12-23] MEDS ORDERED: heparin 1,000unit/ml 10ml vial 10 ML ONE (13:34)
[2020-12-23] MEDS ORDERED: fentaNYL/PF 50MCG/1 ML 2ML syringe ONE (13:35)
[2020-12-23] MEDS: insulin regular, human U-100 3ml vial - multi-dose SQ SCH ×2 (14:00→20:00)
--- NOTE | 2020-12-23 16:40 | NUR ---
Problems reprioritized. Patient report given, questions answered & plan of care reviewed with David RN in Med surg. pt to transfer to Med surg floor room 358A.
--- NOTE | 2020-12-23 17:00 | NUR ---
Pt stable for transfer to [facility] per MD order. Pt accompanied by this nurse and patient childcare worker to [facility] surg. no s/s acute distress. no s/sx abnormal bleeding s/p TDC placement. pt four person transferred to bed on med surg floor. no s/sx acute distress
--- NOTE | 2020-12-23 17:00 | NUR ---
Patient in room ABBEY 358. I have received report from Ivonne APONTE and had the opportunity to ask questions and assume patient care.
--- NOTE | 2020-12-23 19:04 | NUR ---
Problems reprioritized. Patient report given, questions answered & plan of care reviewed with Ernesto APONTE.
--- NOTE | 2020-12-23 19:15 | NUR ---
Patient in room ABBEY 358. I have received report from BETTYE APONTE and had the opportunity to ask questions and assume patient care.
[2020-12-23] MEDS: lactobacillus rhamnosus 10,000 MMU CELLS/CAPSULE CORPAK SCH (20:00)
[2020-12-23] MEDS: docusate sodium 100mg/10ml UD cup CORPAK SCH (20:00)
[2020-12-23] MEDS: polyethylene glycol 3350 17gm powd pack CORPAK SCH (21:00)
[2020-12-24] VITALS: BP 133/87
[2020-12-24] MEDS: mineral oil/petrolatum ophthal oint EACHEYE SCH ×4 (02:00→20:00)
[2020-12-24] MEDS: insulin regular, human U-100 3ml vial - multi-dose SQ SCH ×4 (02:00→20:00)
--- NOTE | 2020-12-24 05:00 | NUR ---
MEETAK INSERTED TO RIGHT NARE, X-RAY ORDERED TO CHECK PLACEMENT AND SAID THEY WILL DO IT 3-4HRS AFTER PLACEMENT.
--- NOTE | 2020-12-24 06:30 | NUR ---
Problems reprioritized. Patient report given, questions answered & plan of care reviewed with CHRIS APONTE.
[2020-12-24] MEDS: lansoprazole 15mg solutab CORPAK SCH (07:30)
--- NOTE | 2020-12-24 07:30 | NUR ---
gaming investigator aware restraint order and restraints are on pt. States to not remove restraints. Will contact MD.
--- NOTE | 2020-12-24 07:35 | NUR ---
PAGER ID: [phone] MESSAGE: Avel CormierTess PLEASE RENEW RETRAINT ORDER ARUN. RESTRAINTS IN PLACE WITH NO CURRENT ORDER. Also pt tube feeding has been off for hours r/t no corpack. Pt not on any fluids. Concerned about BG. D5? Aspen Giang Addendum: 12/24/20 at 0809 by Aspen Tran RN PAGER ID: [phone] MESSAGE: [facility] HOSPITAL LIST SHOWS YOU ARE HOSPITALIST FOR THIS PT. AVEL CormierTess. DID YOU SPEAK WITH ADALI? ASPEN Giang
[2020-12-24 08:00] VITALS: BP 142/88
[2020-12-24] MEDS: docusate sodium 100mg/10ml UD cup CORPAK SCH ×2 (08:00→21:29)
[2020-12-24] MEDS: lactobacillus rhamnosus 10,000 MMU CELLS/CAPSULE CORPAK SCH ×2 (08:00→21:29)
[2020-12-24 08:09] LABS: ANION GAP 19 (8-16); CHLORIDE 102 MMOL/L (99-107); GLUCOSE 74 MG/DL (70-104); POTASSIUM 4.9 MMOL/L (3.5-5.1); SODIUM 143 MMOL/L (135-145); TOTAL CARBON DIOXIDE 22.2 MMOL/L (24-32)
[2020-12-24 08:10] LABS: ALBUMIN 1.8 G/DL (3.4-5.0); BLOOD UREA NITROGEN 91 MG/DL (7-18); BUN/CREATININE RATIO 13.7 (5.4-32.0); CALCIUM 6.7 MG/DL (8.5-10.1); CREATININE 6.66 MG/DL (0.60-1.10); MAGNESIUM 2.6 MG/DL (1.5-2.4); eGFR 9 ML/MIN
--- NOTE | 2020-12-24 08:20 | NUR ---
PER PLANER OFFBEARER HOSPITALIST RETURNED [facility] STATING HE WAS NOT THE PHYSICIAN FOR THIS PT. TODAY HOWEVER HE IS LISTED SO ON HOSPITALIST LIST. PAGED HOSPITALIST BACK NOTIFYING HIM. WAITING RESPONSE.
--- NOTE | 2020-12-24 08:41 | NUR ---
CALLED DAM ATTENDANT STUDIO ARTIST. DISCUSSED KIDNEY FX, ANURIA, NO TUBE FEEDING OR FLUID RUNNING, LAST BG AND LAST VENOUS C02 LAB RESULT. BEATRIZ STATED NO FLUIDS, AND [facility] RADIOLOGY TO HAVE KUB DONE NOW.
--- NOTE | 2020-12-24 08:43 | NUR ---
JASWINDER ROUNDED AND STATED HE WILL RENEW RESTRAINT ORDER. AWARE ORDER IS ALREADY.
--- NOTE | 2020-12-24 08:45 | NUR ---
PAGED RADIOLOGY TO HAVE KUB DONE STAT
[2020-12-24 09:41] LABS: BASOPHILS % (AUTO) 0.1 % (0-1); EOSINOPHILS % (AUTO) 0.5 % (0-6); HEMATOCRIT 29.1 % (42.0-52.0); HEMOGLOBIN 9.8 g/dl (14.0-17.9); LYMPHOCYTES # (AUTO) 0.7 X10'3 (1.1-4.8); LYMPHOCYTES % (AUTO) 7.7 % (21-51); MEAN CORPUSCULAR HEMOGLOBIN 31.3 PG (27.0-31.0); MEAN CORPUSCULAR HGB CONC 33.7 g/dL (33.0-36.5); MEAN CORPUSCULAR VOLUME 92.9 FL (78-98); MEAN PLATELET VOLUME 9.4 FL (7.4-10.4); MONOCYTES # (AUTO) 0.4 X10'3 (0-0.9); MONOCYTES % (AUTO) 4.4 % (2-12); NEUTROPHILS # (AUTO) 8.3 X10'3 (1.8-7.7); NEUTROPHILS % (AUTO) 87.3 % (42-75); PLATELET COUNT 188 X10'3 (140-440); RED BLOOD COUNT 3.13 X10'6 (4.70-6.10); RED CELL DISTRIBUTION WIDTH 14.9 % (11.5-14.5); WHITE BLOOD COUNT 9.5 X10'3 (4.5-11.0)
[2020-12-24 11:00] VITALS: BP 142/88
--- NOTE | 2020-12-24 13:00 | NUR ---
RADIOLOGY RESULTS FOR KUB NOTED. BOTH TUBE FEEDING PUMPS NOT WORKING. GRAPHIC COORDINATOR AWARE AND CRIMINAL JUDGE ATTEMPTING TO FIND ANOTHER PUMP. CORPACK FLUSHED AND WORKING PROPERLY IN CORRECT PLACEMENT.
--- NOTE | 2020-12-24 15:04 | NUR ---
TUBE FEEDING STARTED AT 25ML AN HOUR.
[2020-12-24 15:25] LABS: HBSAG SCREEN Negative (Negative)
--- NOTE | 2020-12-24 17:26 | NUR ---
kHRALING ROUNDED ON PT. AWARE OF LOW URINE OUTPUT OVER LAST SHIFT.
[2020-12-24] MEDS: acetaminophen 650mg rectal suppository RC PRN (17:29)
--- NOTE | 2020-12-24 18:28 | NUR ---
GAVE REPORT TO INESSA WYLIE RN
--- NOTE | 2020-12-24 18:30 | NUR ---
Patient in room ABBEY 358. I have received report from CHRIS APONTE and had the opportunity to ask questions and assume patient care.
[2020-12-24 20:00] VITALS: BP 138/91
[2020-12-24] MEDS: polyethylene glycol 3350 17gm powd pack CORPAK SCH (21:29)
[2020-12-25] VITALS: BP 150/101
[2020-12-25] MEDS: acetaminophen 650mg rectal suppository RC PRN (01:12)
[2020-12-25] MEDS: mineral oil/petrolatum ophthal oint EACHEYE SCH ×3 (02:00→13:16)
[2020-12-25] MEDS: insulin regular, human U-100 3ml vial - multi-dose SQ SCH ×4 (02:00→20:20)
[2020-12-25] MEDS ORDERED: LORazepam 2 mg/ml vial IV ONE ×2 (03:55→21:55)
--- NOTE | 2020-12-25 03:55 | NUR ---
NEW CORPAK INSERTED TO RIGHT NARES. X-RAY FOR PLACEMENT ORDERED. CALLED DR. GALLARDO AND WAS INFORMED THAT PATIENT IS SO RESTLESS AND ANXIOUS THAT FROM MOVING TOO MUCH OF HIS HEAD CORPAK WAS REMOVED, ATIVAN IMG IV ORDERED.
--- NOTE | 2020-12-25 06:25 | NUR ---
Problems reprioritized. Patient report given, questions answered & plan of care reviewed with CHRIS APONTE.
[2020-12-25 06:49] VITALS: BP 140/102
[2020-12-25 06:53] LABS: BASOPHILS % (AUTO) 0.3 % (0-1); EOSINOPHILS # (AUTO) 0.1 X10'3 (0-0.9); EOSINOPHILS % (AUTO) 0.7 % (0-6); HEMATOCRIT 28.2 % (42.0-52.0); HEMOGLOBIN 9.5 g/dl (14.0-17.9); LYMPHOCYTES # (AUTO) 0.8 X10'3 (1.1-4.8); LYMPHOCYTES % (AUTO) 6.9 % (21-51); MEAN CORPUSCULAR HGB CONC 33.5 g/dL (33.0-36.5); MEAN CORPUSCULAR VOLUME 92.3 FL (78-98); MEAN PLATELET VOLUME 9.1 FL (7.4-10.4); MONOCYTES # (AUTO) 0.4 X10'3 (0-0.9); MONOCYTES % (AUTO) 3.4 % (2-12); NEUTROPHILS # (AUTO) 10.1 X10'3 (1.8-7.7); NEUTROPHILS % (AUTO) 88.7 % (42-75); PLATELET COUNT 234 X10'3 (140-440); RED BLOOD COUNT 3.06 X10'6 (4.70-6.10); RED CELL DISTRIBUTION WIDTH 15.3 % (11.5-14.5); WHITE BLOOD COUNT 11.4 X10'3 (4.5-11.0)
[2020-12-25 07:25] LABS: ALANINE AMINOTRANSFERASE 333 U/L (12-78); ALBUMIN 1.9 G/DL (3.4-5.0); ALBUMIN/GLOBULIN RATIO 0.5 (1.1-1.5); ALKALINE PHOSPHATASE 110 IU/L (46-116); ANION GAP 17 (8-16); ASPARTATE AMINO TRANSFERASE 313 U/L (10-37); BILIRUBIN,TOTAL 1.5 MG/DL (0.1-1.0); BLOOD UREA NITROGEN 135 MG/DL (7-18); BUN/CREATININE RATIO 14.7 (5.4-32.0); CALCIUM 7.4 MG/DL (8.5-10.1); CHLORIDE 105 MMOL/L (99-107); CREATININE 9.17 MG/DL (0.60-1.10); GLUCOSE 94 MG/DL (70-104); POTASSIUM 4.9 MMOL/L (3.5-5.1); SODIUM 145 MMOL/L (135-145); TOTAL CARBON DIOXIDE 22.9 MMOL/L (24-32); TOTAL PROTEIN 5.5 G/DL (6.4-8.2); TRIGLYCERIDES 241 MG/DL (20-135); eGFR 6 ML/MIN
--- NOTE | 2020-12-25 07:25 | NUR ---
PAGER ID: [phone] MESSAGE: David Kahn [id number] Please renew restraint order before 5930, thank you. Can this pt. have an ST eval and diet? Keeps pulling Corpack out. PT eval? Aspen [phone]
[2020-12-25] MEDS: lansoprazole 15mg solutab CORPAK SCH (07:30)
--- NOTE | 2020-12-25 07:30 | NUR ---
bladder scanned pt. 75ml in bladder.
[2020-12-25 07:56] LABS: % IRON SATURATION 22 % (11-46); IRON 42 UG/DL (53-167); TOTAL IRON BINDING CAPACITY 187 UG/DL (259-388)
[2020-12-25] MEDS: lactobacillus rhamnosus 10,000 MMU CELLS/CAPSULE CORPAK SCH ×2 (08:00→21:29)
[2020-12-25] MEDS: docusate sodium 100mg/10ml UD cup CORPAK SCH ×2 (08:00→20:00)
[2020-12-25] MEDS ORDERED: normal saline 1000ml 250 ML IV PRN (10:30)
[2020-12-25] MEDS ORDERED: EPOETIN ALFA-EPBX 20,000 UNIT/ML 1 ML MDV IV ONE (10:30)
[2020-12-25] MEDS ORDERED: heparin 1,000unit/ml 10ml vial 10 ML IV ONE (10:30)
[2020-12-25] MEDS ORDERED: heparin 1,000 units/ml 10ml inj HE ONE ×2 (10:35)
[2020-12-25] MEDS ORDERED: LIDOcaine 2% 10ml TOPICAL JELLY (Urojet) MM ONE (11:15)
[2020-12-25] MEDS ORDERED: vancomycin/NS 1 GM ADD-VANTAGE 250 ML IV SCH (11:30)
--- NOTE | 2020-12-25 11:48 | NUR ---
PAGER ID: [phone] MESSAGE: David Kahn [id number] Radiologist asking to speak with you regarding CXR- call [phone]. Aspen [phone]
[2020-12-25 11:52] LABS: CREATINE KINASE 9637 U/L (39-308)
[2020-12-25 11:53] LABS: CLARITY,URINE SLIGHTLY CLOUDY (Clear); COLOR,URINE BROWN (Yellow); GLUCOSE, URINE 100 mg/dl (Neg); KETONES,URINE TRACE mg/dl (Neg); LEUKOCYTE ESTERASE ,URINE TRACE (Neg); NITRITES, URINE NEGATIVE (Neg); OCCULT BLOOD,URINE LARGE (Neg); PROTEIN,URINE >=300 mg/dl (Neg); UROBILINOGEN,URINE 0.2 E.U/dL (0.2-1.0)
[2020-12-25 11:57] LABS: UA COLLECTION TYPE STRAIGHT CATH
[2020-12-25 11:59] LABS: BACTERIA,URINE NONE SEEN /HPF (Neg); MUCUS STRANDS FEW /LPF (Neg); RBC,URINE 20-50 /HPF (0-2); SQUAMOUS EPITHELIAL CELL,UR NONE SEEN /LPF (FEW); WBC,URINE 0-4 /HPF (0-4)
--- NOTE | 2020-12-25 12:02 | NUR ---
KUB showing corpack placement in distal stomach, advanced corpack 7 to 60 and will reorder kub in 1 hour.
--- NOTE | 2020-12-25 12:10 | NUR ---
Hospitalist called. small (15%) R apical pneumothorax, would like pt. on 2LPM 02 via n/c and will recheck CXR later today.
[2020-12-25] MEDS: CefTRIAXone/D5W-Rocephin 1gm 50 ML IV SCH (12:34)
[2020-12-25] MEDS ORDERED: vancomycin/NS 1 GM ADD-VANTAGE 250 ML IV ONE (13:15)
[2020-12-25] MEDS ORDERED: VANCOMYCIN 750MG IV in NS 250 ML IV ONE (14:45)
--- NOTE | 2020-12-25 15:25 | NUR ---
Dialysis started on pt. egg producer at bedside.
--- NOTE | 2020-12-25 17:07 | NUR ---
Called ICU charge to verify placement of KUB. Nepro started at 25ml. To be advanced at 0100 12/26 to goal rate of 55ml/hr if residual allows.
--- NOTE | 2020-12-25 18:35 | NUR ---
Gave report to Gill APONTE.
[2020-12-25 19:30] VITALS: BP 129/89
--- NOTE | 2020-12-25 19:30 | NUR ---
no urine; dialysis in progress Addendum: 12/26/20 at 0334 by Eryn Carter RN Amended: Links added.
--- NOTE | 2020-12-25 20:41 | NUR ---
VERBAL REPORT RECEIVED FROM CHAIN DYER TAMAR: 2L FLUID OFF WITH DIALYSIS PER MD ORDER. BP 118/90, HR 99, R 20 TEMP 36.2
[2020-12-25] MEDS: polyethylene glycol 3350 17gm powd pack CORPAK SCH (21:00)
[2020-12-25 22:15] VITALS: BP 127/86
[2020-12-26] MEDS: insulin regular, human U-100 3ml vial - multi-dose SQ SCH ×4 (02:00→20:00)
[2020-12-26] MEDS: VANCOMYCIN LEVEL IV SCH (03:00)
[2020-12-26] MEDS: acetaminophen 650mg rectal suppository RC PRN (05:19)
[2020-12-26 05:44] LABS: BASOPHILS % (AUTO) 0.1 % (0-1); EOSINOPHILS # (AUTO) 0.1 X10'3 (0-0.9); EOSINOPHILS % (AUTO) 1.2 % (0-6); HEMATOCRIT 27.9 % (42.0-52.0); HEMOGLOBIN 9.3 g/dl (14.0-17.9); LYMPHOCYTES # (AUTO) 0.7 X10'3 (1.1-4.8); LYMPHOCYTES % (AUTO) 6.3 % (21-51); MEAN CORPUSCULAR HEMOGLOBIN 31.2 PG (27.0-31.0); MEAN CORPUSCULAR HGB CONC 33.1 g/dL (33.0-36.5); MEAN CORPUSCULAR VOLUME 94.3 FL (78-98); MEAN PLATELET VOLUME 8.9 FL (7.4-10.4); MONOCYTES # (AUTO) 0.3 X10'3 (0-0.9); MONOCYTES % (AUTO) 2.9 % (2-12); NEUTROPHILS # (AUTO) 10.3 X10'3 (1.8-7.7); NEUTROPHILS % (AUTO) 89.5 % (42-75); PLATELET COUNT 255 X10'3 (140-440); RED BLOOD COUNT 2.96 X10'6 (4.70-6.10); RED CELL DISTRIBUTION WIDTH 15.5 % (11.5-14.5); WHITE BLOOD COUNT 11.5 X10'3 (4.5-11.0)
[2020-12-26 05:53] LABS: ALANINE AMINOTRANSFERASE 292 U/L (12-78); ALBUMIN 1.9 G/DL (3.4-5.0); ALBUMIN/GLOBULIN RATIO 0.6 (1.1-1.5); ALKALINE PHOSPHATASE 140 IU/L (46-116); ANION GAP 11 (8-16); ASPARTATE AMINO TRANSFERASE 251 U/L (10-37); BILIRUBIN,TOTAL 1.3 MG/DL (0.1-1.0); BLOOD UREA NITROGEN 76 MG/DL (7-18); BUN/CREATININE RATIO 12.9 (5.4-32.0); CALCIUM 7.1 MG/DL (8.5-10.1); CHLORIDE 105 MMOL/L (99-107); CREATININE 5.91 MG/DL (0.60-1.10); GLUCOSE 102 MG/DL (70-104); POTASSIUM 4.4 MMOL/L (3.5-5.1); PREALBUMIN 15.6 MG/DL (19-36); SODIUM 143 MMOL/L (135-145); TOTAL CARBON DIOXIDE 26.8 MMOL/L (24-32); TOTAL PROTEIN 5.1 G/DL (6.4-8.2); VANCOMYCIN,RANDOM 20.6 UG/ML; eGFR 10 ML/MIN
--- NOTE | 2020-12-26 07:03 | NUR ---
Patient in room ABBEY 358. I have received report from Pat RN and had the opportunity to ask questions and assume patient care.
[2020-12-26 07:17] VITALS: BP 155/55
[2020-12-26] MEDS ORDERED: vancomycin/NS 1 GM ADD-VANTAGE 250 ML IV PRN (08:00)
[2020-12-26] MEDS: CefTRIAXone/D5W-Rocephin 1gm 50 ML IV SCH (08:47)
[2020-12-26] MEDS: docusate sodium 100mg/10ml UD cup CORPAK SCH (08:47)
[2020-12-26] MEDS: lactobacillus rhamnosus 10,000 MMU CELLS/CAPSULE CORPAK SCH (08:47)
[2020-12-26] MEDS: lansoprazole 15mg solutab CORPAK SCH (08:48)
[2020-12-26 11:32] VITALS: BP 122/86
--- NOTE | 2020-12-26 12:35 | NUR ---
tube feeding reassessment on hold per patient being started on oral feeding at this time.
--- NOTE | 2020-12-26 16:53 | NUR ---
F/u 12/26: Pt pulled corpak out multiple times per RN w/ TF reaching goal last night and pt tolerating. Pt now advanced to pureed/thin liquids per FLEET SERVICE MANAGER recs this AM and slightly more A/O today per DO note. Pt PO ~50% avg first meal and has now pulled corpak out once more while in restraints so only PO diet to continue at this time per RN. LBM 12/25. Will monitor for PO trends and ONS needs on HD. Rec: 1. Continue pureed/thin diet per FLEET SERVICE MANAGER/DO recs; IF PO consistently ~65% avg meals consider renal restriction on HD 2. monitor for ONS needs on HD pending further PO trends 3. Phos binder if MD agreeable 4. Routine bowel care 5. wts w/ HD Addendum: 12/26/20 at [address] Amended: Links added.
[2020-12-26 18:00] VITALS: BP 126/96
--- NOTE | 2020-12-26 18:30 | NUR ---
Patient in room ABBEY 358. I have received report from FAY Hernandez and had the opportunity to ask questions and assume patient care.
--- NOTE | 2020-12-26 18:55 | NUR ---
Problems reprioritized. Patient report given, questions answered & plan of care reviewed with Patti APONTE.
--- NOTE | 2020-12-26 18:58 | NUR ---
PAGER ID: [phone] MESSAGE: David Surg [phone] Femi, patient needed to restraint order renewed today, just wanted to remind you. Thanks David.
[2020-12-27] MEDS: lactobacillus rhamnosus 10,000 MMU CELLS/CAPSULE CORPAK SCH ×3 (00:49→20:50)
[2020-12-27] MEDS: docusate sodium 100mg/10ml UD cup CORPAK SCH ×3 (00:49→20:50)
[2020-12-27] MEDS: polyethylene glycol 3350 17gm powd pack CORPAK SCH ×2 (00:49→20:50)
[2020-12-27] MEDS: insulin regular, human U-100 3ml vial - multi-dose SQ SCH ×2 (02:00→08:00)
[2020-12-27] MEDS: VANCOMYCIN LEVEL IV SCH (03:00)
[2020-12-27 06:29] LABS: BASOPHILS % (AUTO) 0.2 % (0-1); EOSINOPHILS # (AUTO) 0.1 X10'3 (0-0.9); EOSINOPHILS % (AUTO) 0.8 % (0-6); HEMATOCRIT 27.3 % (42.0-52.0); LYMPHOCYTES # (AUTO) 0.8 X10'3 (1.1-4.8); LYMPHOCYTES % (AUTO) 6.8 % (21-51); MEAN CORPUSCULAR HEMOGLOBIN 31.3 PG (27.0-31.0); MEAN CORPUSCULAR VOLUME 94.9 FL (78-98); MEAN PLATELET VOLUME 8.6 FL (7.4-10.4); MONOCYTES # (AUTO) 0.3 X10'3 (0-0.9); MONOCYTES % (AUTO) 2.9 % (2-12); NEUTROPHILS # (AUTO) 10.4 X10'3 (1.8-7.7); NEUTROPHILS % (AUTO) 89.3 % (42-75); PLATELET COUNT 249 X10'3 (140-440); RED BLOOD COUNT 2.88 X10'6 (4.70-6.10); RED CELL DISTRIBUTION WIDTH 15.5 % (11.5-14.5); WHITE BLOOD COUNT 11.7 X10'3 (4.5-11.0)
[2020-12-27 06:58] LABS: ALBUMIN 1.8 G/DL (3.4-5.0); ALBUMIN/GLOBULIN RATIO 0.6 (1.1-1.5); ANION GAP 15 (8-16); ASPARTATE AMINO TRANSFERASE 142 U/L (10-37); BILIRUBIN,TOTAL 1.3 MG/DL (0.1-1.0); BLOOD UREA NITROGEN 111 MG/DL (7-18); BUN/CREATININE RATIO 13.6 (5.4-32.0); CALCIUM 7.3 MG/DL (8.5-10.1); CHLORIDE 100 MMOL/L (99-107); CREATININE 8.18 MG/DL (0.60-1.10); GLUCOSE 87 MG/DL (70-104); POTASSIUM 4.9 MMOL/L (3.5-5.1); SODIUM 139 MMOL/L (135-145); TOTAL CARBON DIOXIDE 23.6 MMOL/L (24-32); eGFR 7 ML/MIN
[2020-12-27 06:59] LABS: ALANINE AMINOTRANSFERASE 231 U/L (12-78); ALKALINE PHOSPHATASE 107 IU/L (46-116); VANCOMYCIN,RANDOM 16.4 UG/ML
[2020-12-27] MEDS ORDERED: EPOETIN ALFA-EPBX 20,000 UNIT/ML 1 ML MDV IV ONE (08:00)
[2020-12-27] MEDS ORDERED: heparin 1,000 units/ml 10ml inj HE ONE ×2 (08:00)
[2020-12-27] MEDS ORDERED: heparin 1,000unit/ml 10ml vial 10 ML IV ONE (08:00)
[2020-12-27] MEDS: CefTRIAXone/D5W-Rocephin 1gm 50 ML IV SCH (08:01)
[2020-12-27] MEDS: lansoprazole 15mg solutab CORPAK SCH (08:01)
[2020-12-27 08:30] VITALS: BP 139/88
--- NOTE | 2020-12-27 08:41 | NUR ---
patient pulled out corpak. Addendum: 12/27/20 at 0842 by Lili Castro RN Amended: Links added.
[2020-12-27 12:31] VITALS: BP 147/98
--- NOTE | 2020-12-27 14:56 | NUR ---
PAGER ID: [phone] MESSAGE: [id number] Femi R: renew restraint order? or DC it? he only has one wrist in restraints. and there is a sitter in room. thanks! marshall [phone]
--- NOTE | 2020-12-27 18:34 | NUR ---
Problems reprioritized. Patient report given, questions answered & plan of care reviewed with FAY Palomares.
--- NOTE | 2020-12-27 19:02 | NUR ---
Patient in room ABBEY 358. I have received report from Lili APONTE and had the opportunity to ask questions and assume patient care.
[2020-12-28] MEDS: VANCOMYCIN LEVEL IV SCH ×2 (03:00→20:43)
--- NOTE | 2020-12-28 06:10 | NUR ---
Problems reprioritized. Patient report given, questions answered & plan of care reviewed with Lili APONTE.
[2020-12-28 07:39] LABS: BASOPHILS % (AUTO) 0.4 % (0-1); EOSINOPHILS # (AUTO) 0.1 X10'3 (0-0.9); EOSINOPHILS % (AUTO) 0.7 % (0-6); HEMATOCRIT 28.3 % (42.0-52.0); HEMOGLOBIN 9.4 g/dl (14.0-17.9); LYMPHOCYTES # (AUTO) 0.7 X10'3 (1.1-4.8); LYMPHOCYTES % (AUTO) 6.8 % (21-51); MEAN CORPUSCULAR HEMOGLOBIN 31.6 PG (27.0-31.0); MEAN CORPUSCULAR HGB CONC 33.2 g/dL (33.0-36.5); MEAN CORPUSCULAR VOLUME 95.2 FL (78-98); MONOCYTES # (AUTO) 0.6 X10'3 (0-0.9); NEUTROPHILS # (AUTO) 8.3 X10'3 (1.8-7.7); NEUTROPHILS % (AUTO) 86.1 % (42-75); PLATELET COUNT 299 X10'3 (140-440); RED BLOOD COUNT 2.97 X10'6 (4.70-6.10); WHITE BLOOD COUNT 9.6 X10'3 (4.5-11.0)
[2020-12-28] MEDS: lansoprazole 15mg solutab CORPAK SCH (07:50)
[2020-12-28] MEDS: docusate sodium 100mg/10ml UD cup CORPAK SCH ×2 (07:50→20:41)
[2020-12-28] MEDS: lactobacillus rhamnosus 10,000 MMU CELLS/CAPSULE CORPAK SCH ×2 (07:50→20:42)
[2020-12-28 08:00] VITALS: BP 143/89
[2020-12-28 08:00] LABS: ALANINE AMINOTRANSFERASE 184 U/L (12-78); ALBUMIN/GLOBULIN RATIO 0.6 (1.1-1.5); ALKALINE PHOSPHATASE 92 IU/L (46-116); ASPARTATE AMINO TRANSFERASE 83 U/L (10-37); BILIRUBIN,TOTAL 1.1 MG/DL (0.1-1.0); BLOOD UREA NITROGEN 65 MG/DL (7-18); BUN/CREATININE RATIO 11.3 (5.4-32.0); CALCIUM 7.6 MG/DL (8.5-10.1); CREATININE 5.75 MG/DL (0.60-1.10); GLUCOSE 86 MG/DL (70-104); TOTAL CARBON DIOXIDE 26.7 MMOL/L (24-32); TOTAL PROTEIN 5.6 G/DL (6.4-8.2); VANCOMYCIN,RANDOM 11.1 UG/ML; eGFR 10 ML/MIN
[2020-12-28] MEDS: CefTRIAXone/D5W-Rocephin 1gm 50 ML IV SCH ×2 (08:00→12:18)
[2020-12-28 08:07] LABS: ANION GAP 10 (8-16); CHLORIDE 102 MMOL/L (99-107); SODIUM 139 MMOL/L (135-145)
--- NOTE | 2020-12-28 08:29 | NUR ---
Page sent to PICC RN.... [id number] Dez Kahn: patient needs PIV fransico. thank you!
[2020-12-28] MEDS ORDERED: vancomycin/NS 1 GM ADD-VANTAGE 250 ML IV ONE (09:00)
--- NOTE | 2020-12-28 11:04 | NUR ---
Unable to obtain IV access. MD aware. PICC RN at bedside attempting ultrasound guided placement. Will administer Vanco & Rocephin once access is gained.
[2020-12-28 12:16] VITALS: BP 141/95
[2020-12-28 19:00] VITALS: BP 157/81
--- NOTE | 2020-12-28 19:08 | NUR ---
Patient in room ABBEY 358. I have received report from Lili APONTE and had the opportunity to ask questions and assume patient care.
[2020-12-28] MEDS: polyethylene glycol 3350 17gm powd pack CORPAK SCH (20:41)
[2020-12-29] VITALS: BP 166/91
[2020-12-29 00:45] VITALS: BP 155/82
--- NOTE | 2020-12-29 06:36 | NUR ---
Problems reprioritized. Patient report given, questions answered & plan of care reviewed with Liil APONTE.
[2020-12-29 06:41] LABS: ALANINE AMINOTRANSFERASE 132 U/L (12-78); ALBUMIN/GLOBULIN RATIO 0.6 (1.1-1.5); ALKALINE PHOSPHATASE 91 IU/L (46-116); ANION GAP 10 (8-16); ASPARTATE AMINO TRANSFERASE 57 U/L (10-37); BILIRUBIN,TOTAL 0.9 MG/DL (0.1-1.0); BLOOD UREA NITROGEN 91 MG/DL (7-18); CALCIUM 7.5 MG/DL (8.5-10.1); CHLORIDE 98 MMOL/L (99-107); CREATININE 7.58 MG/DL (0.60-1.10); GLUCOSE 82 MG/DL (70-104); POTASSIUM 5.6 MMOL/L (3.5-5.1); SODIUM 131 MMOL/L (135-145); TOTAL PROTEIN 5.6 G/DL (6.4-8.2); VANCOMYCIN,RANDOM 24.9 UG/ML; eGFR 8 ML/MIN
[2020-12-29 07:30] VITALS: BP 127/88
[2020-12-29] MEDS: lansoprazole 15mg solutab CORPAK SCH (07:30)
[2020-12-29] MEDS: lactobacillus rhamnosus 10,000 MMU CELLS/CAPSULE CORPAK SCH ×2 (07:55→21:11)
[2020-12-29] MEDS: docusate sodium 100mg/10ml UD cup CORPAK SCH ×2 (07:55→20:00)
--- NOTE | 2020-12-29 07:55 | NUR ---
director phone at bedside
[2020-12-29] MEDS ORDERED: heparin 1,000 units/ml 10ml inj HE ONE ×2 (08:00)
[2020-12-29] MEDS ORDERED: heparin 1,000unit/ml 10ml vial 10 ML IV ONE (08:00)
[2020-12-29] MEDS ORDERED: EPOETIN ALFA-EPBX 20,000 UNIT/ML 1 ML MDV IV ONE (08:00)
[2020-12-29 08:08] LABS: BASOPHILS % (AUTO) 0.3 % (0-1); EOSINOPHILS # (AUTO) 0.1 X10'3 (0-0.9); EOSINOPHILS % (AUTO) 0.9 % (0-6); HEMATOCRIT 26.5 % (42.0-52.0); HEMOGLOBIN 8.9 g/dl (14.0-17.9); LYMPHOCYTES # (AUTO) 0.8 X10'3 (1.1-4.8); LYMPHOCYTES % (AUTO) 9.8 % (21-51); MEAN CORPUSCULAR HGB CONC 33.4 g/dL (33.0-36.5); MEAN CORPUSCULAR VOLUME 95.6 FL (78-98); MEAN PLATELET VOLUME 8.8 FL (7.4-10.4); MONOCYTES # (AUTO) 0.8 X10'3 (0-0.9); MONOCYTES % (AUTO) 9.7 % (2-12); NEUTROPHILS # (AUTO) 6.3 X10'3 (1.8-7.7); NEUTROPHILS % (AUTO) 79.3 % (42-75); PLATELET COUNT 305 X10'3 (140-440); RED BLOOD COUNT 2.77 X10'6 (4.70-6.10); RED CELL DISTRIBUTION WIDTH 15.6 % (11.5-14.5); WHITE BLOOD COUNT 7.9 X10'3 (4.5-11.0)
[2020-12-29 12:40] VITALS: BP 151/95
[2020-12-29] MEDS: CefTRIAXone/D5W-Rocephin 1gm 50 ML IV SCH (13:13)
[2020-12-29 18:00] VITALS: BP 142/80
--- NOTE | 2020-12-29 18:46 | NUR ---
Patient in room ABBEY 358. I have received report from DEVYN APONTE and had the opportunity to ask questions and assume patient care.
[2020-12-29] MEDS: polyethylene glycol 3350 17gm powd pack CORPAK SCH (21:00)
[2020-12-30] VITALS: BP 142/80
[2020-12-30] MEDS: VANCOMYCIN LEVEL IV SCH (03:00)
--- NOTE | 2020-12-30 06:32 | NUR ---
Problems reprioritized. Patient report given, questions answered & plan of care reviewed with HENRRY APONTE.
--- NOTE | 2020-12-30 06:36 | NUR ---
Patient in room ABBEY 358. I have received report from FAY Zhang and had the opportunity to ask questions and assume patient care.
[2020-12-30 07:00] VITALS: BP 151/96
[2020-12-30] MEDS: docusate sodium 100mg/10ml UD cup CORPAK SCH (08:00)
[2020-12-30] MEDS: lactobacillus rhamnosus 10,000 MMU CELLS/CAPSULE CORPAK SCH (08:18)
[2020-12-30] MEDS: lansoprazole 15mg solutab CORPAK SCH (08:18)
[2020-12-30 09:11] LABS: BASOPHILS % (AUTO) 0.5 % (0-1); EOSINOPHILS # (AUTO) 0.1 X10'3 (0-0.9); HEMATOCRIT 25.1 % (42.0-52.0); HEMOGLOBIN 8.4 g/dl (14.0-17.9); LYMPHOCYTES # (AUTO) 0.8 X10'3 (1.1-4.8); LYMPHOCYTES % (AUTO) 14.4 % (21-51); MEAN CORPUSCULAR HEMOGLOBIN 31.7 PG (27.0-31.0); MEAN CORPUSCULAR HGB CONC 33.5 g/dL (33.0-36.5); MEAN CORPUSCULAR VOLUME 94.7 FL (78-98); MEAN PLATELET VOLUME 8.7 FL (7.4-10.4); MONOCYTES # (AUTO) 0.8 X10'3 (0-0.9); MONOCYTES % (AUTO) 13.2 % (2-12); NEUTROPHILS # (AUTO) 4.2 X10'3 (1.8-7.7); NEUTROPHILS % (AUTO) 70.9 % (42-75); PLATELET COUNT 311 X10'3 (140-440); RED BLOOD COUNT 2.65 X10'6 (4.70-6.10); RED CELL DISTRIBUTION WIDTH 15.7 % (11.5-14.5); WHITE BLOOD COUNT 5.9 X10'3 (4.5-11.0)
[2020-12-30 09:31] LABS: ALANINE AMINOTRANSFERASE 110 U/L (12-78); ALBUMIN 1.8 G/DL (3.4-5.0); ALBUMIN/GLOBULIN RATIO 0.5 (1.1-1.5); ALKALINE PHOSPHATASE 83 IU/L (46-116); ANION GAP 12 (8-16); ASPARTATE AMINO TRANSFERASE 53 U/L (10-37); BILIRUBIN,TOTAL 0.7 MG/DL (0.1-1.0); BLOOD UREA NITROGEN 51 MG/DL (7-18); BUN/CREATININE RATIO 9.1 (5.4-32.0); CALCIUM 7.4 MG/DL (8.5-10.1); CHLORIDE 99 MMOL/L (99-107); CREATININE 5.59 MG/DL (0.60-1.10); GLUCOSE 73 MG/DL (70-104); POTASSIUM 5.2 MMOL/L (3.5-5.1); SODIUM 136 MMOL/L (135-145); TOTAL CARBON DIOXIDE 25.2 MMOL/L (24-32); TOTAL PROTEIN 5.4 G/DL (6.4-8.2); eGFR 11 ML/MIN
[2020-12-30 11:00] VITALS: BP 165/95
--- NOTE | 2020-12-30 16:54 | NUR ---
F/u 12/30: Pt PO 25-50% prior pureed/thin diet past 3 days partially meeting needs though advanced to MM5/thin diet per WIRE WRAPPER MACHINE OPERATOR this AM and PO 100% avg meals since then. Likely tolerating solid meals better noted to be more A/O per MD note. LBM 12/29. Noted pt remains on HD w/ last Phos check 12/[address] d/w RN regarding updated phos level if MD Agreeable; may require phos binder w/ meals per automobile and property underwriter discretion. Will continue to monitor for PO trends and additional protein needs on HD. Rec: 1. Continue MM5/thin diet per WIRE WRAPPER MACHINE OPERATOR/DO recs; IF PO consistently ~65% avg meals consider renal restriction on HD 2. monitor for ONS needs on HD pending further PO trends 3. routine Phos labs on HD and binder per MD discretion 4. Routine bowel care 5. wts w/ HD Addendum: 12/30/20 at [address] Amended: Links added.
--- NOTE | 2020-12-30 18:43 | NUR ---
Problems reprioritized. Patient report given, questions answered & plan of care reviewed with FAY Carter.
[2020-12-30] MEDS ORDERED: dextrose ORAL solution 15 GM/59 ML bottle PO PRN ×2 (18:50→18:51)
--- NOTE | 2020-12-30 18:50 | NUR ---
Patient in room ABBEY 358. I have received report from FAY Parks and had the opportunity to ask questions and assume patient care.
[2020-12-30] MEDS: docusate sodium 100mg/10ml UD cup PO SCH ×2 (20:00→20:25)
[2020-12-30] MEDS: polyethylene glycol 3350 17gm powd pack PO SCH (20:25)
[2020-12-30] MEDS: lactobacillus rhamnosus 10,000 MMU CELLS/CAPSULE PO SCH (20:31)
[2020-12-30] MEDS ORDERED: ondansetron/PF 4mg/2ml inj IV PRN (21:00)
[2020-12-30] MEDS ORDERED: loperamide 2mg capsule PO PRN (21:00)
--- NOTE | 2020-12-31 06:27 | NUR ---
Problems reprioritized. Patient report given, questions answered & plan of care reviewed with FAY Hernandez.
[2020-12-31 06:35] LABS: BASOPHILS % (AUTO) 0.4 % (0-1); EOSINOPHILS % (AUTO) 0.9 % (0-6); HEMATOCRIT 27.9 % (42.0-52.0); HEMOGLOBIN 9.5 g/dl (14.0-17.9); LYMPHOCYTES # (AUTO) 0.9 X10'3 (1.1-4.8); LYMPHOCYTES % (AUTO) 16.6 % (21-51); MEAN CORPUSCULAR VOLUME 93.9 FL (78-98); MEAN PLATELET VOLUME 8.1 FL (7.4-10.4); MONOCYTES % (AUTO) 19.1 % (2-12); NEUTROPHILS # (AUTO) 3.3 X10'3 (1.8-7.7); PLATELET COUNT 358 X10'3 (140-440); RED BLOOD COUNT 2.97 X10'6 (4.70-6.10); RED CELL DISTRIBUTION WIDTH 16.2 % (11.5-14.5); WHITE BLOOD COUNT 5.2 X10'3 (4.5-11.0)
--- NOTE | 2020-12-31 06:36 | NUR ---
Patient in room ABBEY 348. I have received report from Raul APONTE and had the opportunity to ask questions and assume patient care.
[2020-12-31 06:39] LABS: ALANINE AMINOTRANSFERASE 102 U/L (12-78); ALBUMIN/GLOBULIN RATIO 0.5 (1.1-1.5); ALKALINE PHOSPHATASE 83 IU/L (46-116); ANION GAP 10 (8-16); ASPARTATE AMINO TRANSFERASE 51 U/L (10-37); BILIRUBIN,TOTAL 0.7 MG/DL (0.1-1.0); BLOOD UREA NITROGEN 70 MG/DL (7-18); BUN/CREATININE RATIO 9.3 (5.4-32.0); CALCIUM 7.8 MG/DL (8.5-10.1); CHLORIDE 98 MMOL/L (99-107); CREATININE 7.52 MG/DL (0.60-1.10); GLUCOSE 79 MG/DL (70-104); POTASSIUM 5.9 MMOL/L (3.5-5.1); SODIUM 133 MMOL/L (135-145); TOTAL CARBON DIOXIDE 25.4 MMOL/L (24-32); eGFR 8 ML/MIN
[2020-12-31 06:57] LABS: ANISOCYTOSIS 1+; PLATELET ESTIMATE NORMAL; TOTAL CELLS COUNTED 100
[2020-12-31 07:18] VITALS: BP 142/88
[2020-12-31] MEDS: lactobacillus rhamnosus 10,000 MMU CELLS/CAPSULE PO SCH ×2 (09:18→19:42)
[2020-12-31] MEDS: lansoprazole 15mg solutab PO SCH (09:18)
[2020-12-31] MEDS: docusate sodium 100mg/10ml UD cup PO SCH ×2 (09:19→19:45)
[2020-12-31] MEDS ORDERED: heparin 1,000unit/ml 10ml vial 10 ML IV ONE (09:30)
[2020-12-31] MEDS ORDERED: EPOETIN ALFA-EPBX 20,000 UNIT/ML 1 ML MDV IV ONE (09:30)
[2020-12-31] MEDS ORDERED: heparin 1,000 units/ml 10ml inj HE ONE ×2 (09:35)
[2020-12-31 11:00] VITALS: BP 155/94
--- NOTE | 2020-12-31 18:22 | NUR ---
Problems reprioritized. Patient report given, questions answered & plan of care reviewed with Prudence RN.
[2020-12-31 18:30] VITALS: BP 148/96
--- NOTE | 2020-12-31 18:36 | NUR ---
Patient in room ABBEY 358. I have received report from BETTYE APONTE and had the opportunity to ask questions and assume patient care.
[2020-12-31] MEDS: polyethylene glycol 3350 17gm powd pack PO SCH (21:00)
[2021-01-01 00:32] VITALS: BP 153/90
--- NOTE | 2021-01-01 06:16 | NUR ---
Problems reprioritized. Patient report given, questions answered & plan of care reviewed with PRUDENCE RN.
--- NOTE | 2021-01-01 06:23 | NUR ---
Problems reprioritized. Patient report given, questions answered & plan of care reviewed with BETTYE RN.
[2021-01-01 06:49] LABS: BASOPHILS % (AUTO) 0.5 % (0-1); EOSINOPHILS # (AUTO) 0.1 X10'3 (0-0.9); EOSINOPHILS % (AUTO) 1.2 % (0-6); HEMATOCRIT 25.5 % (42.0-52.0); HEMOGLOBIN 8.7 g/dl (14.0-17.9); LYMPHOCYTES # (AUTO) 0.9 X10'3 (1.1-4.8); LYMPHOCYTES % (AUTO) 16.6 % (21-51); MEAN CORPUSCULAR HEMOGLOBIN 32.5 PG (27.0-31.0); MEAN CORPUSCULAR HGB CONC 34.1 g/dL (33.0-36.5); MEAN CORPUSCULAR VOLUME 95.4 FL (78-98); MEAN PLATELET VOLUME 8.3 FL (7.4-10.4); MONOCYTES # (AUTO) 1.1 X10'3 (0-0.9); MONOCYTES % (AUTO) 20.2 % (2-12); NEUTROPHILS # (AUTO) 3.2 X10'3 (1.8-7.7); NEUTROPHILS % (AUTO) 61.5 % (42-75); PLATELET COUNT 371 X10'3 (140-440); RED BLOOD COUNT 2.67 X10'6 (4.70-6.10); RED CELL DISTRIBUTION WIDTH 16.6 % (11.5-14.5); WHITE BLOOD COUNT 5.2 X10'3 (4.5-11.0)
[2021-01-01 06:57] LABS: ALANINE AMINOTRANSFERASE 87 U/L (12-78); ALBUMIN 1.9 G/DL (3.4-5.0); ALBUMIN/GLOBULIN RATIO 0.5 (1.1-1.5); ANION GAP 9 (8-16); ASPARTATE AMINO TRANSFERASE 52 U/L (10-37); BILIRUBIN,TOTAL 0.7 MG/DL (0.1-1.0); BLOOD UREA NITROGEN 44 MG/DL (7-18); BUN/CREATININE RATIO 7.7 (5.4-32.0); CALCIUM 8.6 MG/DL (8.5-10.1); CHLORIDE 100 MMOL/L (99-107); CREATININE 5.74 MG/DL (0.60-1.10); GLUCOSE 77 MG/DL (70-104); SODIUM 136 MMOL/L (135-145); TOTAL CARBON DIOXIDE 27.2 MMOL/L (24-32); TOTAL PROTEIN 5.8 G/DL (6.4-8.2); eGFR 10 ML/MIN
[2021-01-01 07:45] LABS: ALKALINE PHOSPHATASE 89 IU/L (46-116)
[2021-01-01 07:46] LABS: PLATELET ESTIMATE NORMAL; TOTAL CELLS COUNTED 100
[2021-01-01 07:47] LABS: POLYCHROMASIA 1+
[2021-01-01 08:00] VITALS: BP 139/71
[2021-01-01] MEDS: lactobacillus rhamnosus 10,000 MMU CELLS/CAPSULE PO SCH ×2 (09:14→21:03)
[2021-01-01] MEDS: lansoprazole 15mg solutab PO SCH (09:15)
[2021-01-01] MEDS: docusate sodium 100mg/10ml UD cup PO SCH ×2 (09:15→21:03)
[2021-01-01 12:05] VITALS: BP 145/95
--- NOTE | 2021-01-01 18:21 | NUR ---
Problems reprioritized. Patient report given, questions answered & plan of care reviewed with PAT RN.
[2021-01-01 19:30] VITALS: BP 158/95
[2021-01-01] MEDS: polyethylene glycol 3350 17gm powd pack PO SCH (21:03)
[2021-01-02] VITALS: BP 158/95
[2021-01-02 07:00] VITALS: BP 171/98
--- NOTE | 2021-01-02 07:05 | NUR ---
Patient in room ABBEY 358. I have received report from FAY Garland and had the opportunity to ask questions and assume patient care.
[2021-01-02 07:06] LABS: BASOPHILS % (AUTO) 0.6 % (0-1); EOSINOPHILS # (AUTO) 0.1 X10'3 (0-0.9); EOSINOPHILS % (AUTO) 1.8 % (0-6); HEMATOCRIT 28.4 % (42.0-52.0); HEMOGLOBIN 9.5 g/dl (14.0-17.9); LYMPHOCYTES # (AUTO) 1.1 X10'3 (1.1-4.8); LYMPHOCYTES % (AUTO) 19.6 % (21-51); MEAN CORPUSCULAR HEMOGLOBIN 32.1 PG (27.0-31.0); MEAN CORPUSCULAR HGB CONC 33.6 g/dL (33.0-36.5); MEAN CORPUSCULAR VOLUME 95.7 FL (78-98); MONOCYTES # (AUTO) 1.1 X10'3 (0-0.9); MONOCYTES % (AUTO) 20.4 % (2-12); NEUTROPHILS # (AUTO) 3.1 X10'3 (1.8-7.7); NEUTROPHILS % (AUTO) 57.6 % (42-75); PLATELET COUNT 407 X10'3 (140-440); RED BLOOD COUNT 2.96 X10'6 (4.70-6.10); RED CELL DISTRIBUTION WIDTH 16.3 % (11.5-14.5); WHITE BLOOD COUNT 5.4 X10'3 (4.5-11.0)
[2021-01-02 07:32] LABS: ALANINE AMINOTRANSFERASE 83 U/L (12-78); ALBUMIN 1.9 G/DL (3.4-5.0); ALBUMIN/GLOBULIN RATIO 0.5 (1.1-1.5); ALKALINE PHOSPHATASE 87 IU/L (46-116); ANION GAP 14 (8-16); ASPARTATE AMINO TRANSFERASE 50 U/L (10-37); BILIRUBIN,TOTAL 0.7 MG/DL (0.1-1.0); BLOOD UREA NITROGEN 60 MG/DL (7-18); BUN/CREATININE RATIO 8.1 (5.4-32.0); CALCIUM 10.3 MG/DL (8.5-10.1); CHLORIDE 97 MMOL/L (99-107); CREATININE 7.44 MG/DL (0.60-1.10); GLUCOSE 78 MG/DL (70-104); POTASSIUM 5.6 MMOL/L (3.5-5.1); SODIUM 135 MMOL/L (135-145); TOTAL CARBON DIOXIDE 23.8 MMOL/L (24-32); TOTAL PROTEIN 6.1 G/DL (6.4-8.2); eGFR 8 ML/MIN
[2021-01-02] MEDS: docusate sodium 100mg/10ml UD cup PO SCH ×2 (08:00→19:58)
[2021-01-02] MEDS: lansoprazole 15mg solutab PO SCH (09:13)
[2021-01-02] MEDS: lactobacillus rhamnosus 10,000 MMU CELLS/CAPSULE PO SCH (09:13)
[2021-01-02] MEDS: amLODIPine 5mg tablet PO SCH (09:14)
[2021-01-02 11:00] VITALS: BP 153/96
--- NOTE | 2021-01-02 18:22 | NUR ---
Problems reprioritized. Patient report given, questions answered & plan of care reviewed with FAY Orozco.
--- NOTE | 2021-01-02 18:30 | NUR ---
Patient in room ABBEY 358. I have received report from HENRRY APONTE and had the opportunity to ask questions and assume patient care.
[2021-01-02] MEDS: polyethylene glycol 3350 17gm powd pack PO SCH (19:58)
[2021-01-02 20:00] VITALS: BP 167/98
[2021-01-03] VITALS: BP 148/89
--- NOTE | 2021-01-03 06:15 | NUR ---
Problems reprioritized. Patient report given, questions answered & plan of care reviewed with HENRRY APONTE.
--- NOTE | 2021-01-03 06:16 | NUR ---
Patient in room ABBEY 358. I have received report from FAY Orozco and had the opportunity to ask questions and assume patient care.
[2021-01-03 06:45] LABS: BASOPHILS % (AUTO) 0.6 % (0-1); EOSINOPHILS # (AUTO) 0.1 X10'3 (0-0.9); EOSINOPHILS % (AUTO) 1.5 % (0-6); HEMATOCRIT 33.2 % (42.0-52.0); LYMPHOCYTES # (AUTO) 0.9 X10'3 (1.1-4.8); LYMPHOCYTES % (AUTO) 13.1 % (21-51); MEAN CORPUSCULAR HEMOGLOBIN 31.5 PG (27.0-31.0); MEAN CORPUSCULAR HGB CONC 33.2 g/dL (33.0-36.5); MEAN CORPUSCULAR VOLUME 94.9 FL (78-98); MEAN PLATELET VOLUME 7.8 FL (7.4-10.4); MONOCYTES # (AUTO) 1.3 X10'3 (0-0.9); MONOCYTES % (AUTO) 19.5 % (2-12); NEUTROPHILS # (AUTO) 4.4 X10'3 (1.8-7.7); NEUTROPHILS % (AUTO) 65.3 % (42-75); PLATELET COUNT 487 X10'3 (140-440); RED BLOOD COUNT 3.49 X10'6 (4.70-6.10); RED CELL DISTRIBUTION WIDTH 16.1 % (11.5-14.5); WHITE BLOOD COUNT 6.7 X10'3 (4.5-11.0)
[2021-01-03 07:00] VITALS: BP 165/97
[2021-01-03 07:00] LABS: ALANINE AMINOTRANSFERASE 72 U/L (12-78); ALBUMIN/GLOBULIN RATIO 0.4 (1.1-1.5); ALKALINE PHOSPHATASE 99 IU/L (46-116); ANION GAP 14 (8-16); ASPARTATE AMINO TRANSFERASE 42 U/L (10-37); BILIRUBIN,TOTAL 0.7 MG/DL (0.1-1.0); BLOOD UREA NITROGEN 75 MG/DL (7-18); BUN/CREATININE RATIO 8.8 (5.4-32.0); CALCIUM 10.5 MG/DL (8.5-10.1); CHLORIDE 96 MMOL/L (99-107); CREATININE 8.57 MG/DL (0.60-1.10); GLUCOSE 82 MG/DL (70-104); SODIUM 132 MMOL/L (135-145); TOTAL CARBON DIOXIDE 22.3 MMOL/L (24-32); TOTAL PROTEIN 6.5 G/DL (6.4-8.2); eGFR 7 ML/MIN
[2021-01-03] MEDS ORDERED: heparin 1,000 units/ml 10ml inj HE ONE ×2 (08:00)
[2021-01-03] MEDS: docusate sodium 100mg/10ml UD cup PO SCH ×2 (08:00→20:09)
[2021-01-03] MEDS ORDERED: normal saline 1000ml 250 ML IV PRN (08:00)
[2021-01-03] MEDS ORDERED: heparin 1,000unit/ml 10ml vial 10 ML IV ONE (08:00)
[2021-01-03] MEDS ORDERED: EPOETIN ALFA-EPBX 20,000 UNIT/ML 1 ML MDV IV ONE (08:00)
[2021-01-03] MEDS: amLODIPine 5mg tablet PO SCH (08:08)
[2021-01-03] MEDS: lansoprazole 15mg solutab PO SCH (08:08)
[2021-01-03 11:30] VITALS: BP 156/112
--- NOTE | 2021-01-03 12:04 | NUR ---
Pt PO remains adequate, avg intake 89% x 9 meals on mechanical soft diet. Discussed w/ RN placing pt on renal diet if MD agreeable. No N/V/D reported, LBM 12/31. Noted pt remains on HD w/ last Phos check 12/21, 6.3l RD d/w RN regarding updated phos level if MD agreeable; may require phos binder w/ meals per physical therapist discretion. RN reports wounds on L buttock are healed. No new nutritional diagnosis at this time. Will continue to monitor. Rec: 1. Continue MM5/thin diet per CREATIVE SERVICES PRODUCER/DO recs; recommend Renal diet 2. monitor for ONS needs on HD pending further PO trends 3. routine Phos labs on HD and binder per MD discretion 4. Routine bowel care 5. wts w/ HD Addendum: 01/03/21 at [address] Amended: Links added.
[2021-01-03 14:45] VITALS: BP 138/88
--- NOTE | 2021-01-03 18:07 | NUR ---
Problems reprioritized. Patient report given, questions answered & plan of care reviewed with FAY Mast.
[2021-01-03 18:50] VITALS: BP 165/94
[2021-01-03] MEDS: polyethylene glycol 3350 17gm powd pack PO SCH (20:09)
[2021-01-03] MEDS: acetaminophen 325mg tablet PO PRN (23:38)
[2021-01-04] VITALS: BP 154/97
--- NOTE | 2021-01-04 06:37 | NUR ---
Patient in room ABBEY 358. I have received report from FAY Fuller and had the opportunity to ask questions and assume patient care.
--- NOTE | 2021-01-04 06:39 | NUR ---
Problems reprioritized. Patient report given, questions answered & plan of care reviewed with PEDRO. Addendum: 01/04/21 at 0639 by Jonny Mejia RN Amended: Links added.
[2021-01-04 06:48] LABS: BASOPHILS # (AUTO) 0.1 X10'3 (0-0.2); BASOPHILS % (AUTO) 0.8 % (0-1); EOSINOPHILS # (AUTO) 0.2 X10'3 (0-0.9); HEMATOCRIT 33.2 % (42.0-52.0); HEMOGLOBIN 11.1 g/dl (14.0-17.9); LYMPHOCYTES % (AUTO) 11.7 % (21-51); MEAN CORPUSCULAR HEMOGLOBIN 31.8 PG (27.0-31.0); MEAN CORPUSCULAR HGB CONC 33.4 g/dL (33.0-36.5); MEAN CORPUSCULAR VOLUME 95.2 FL (78-98); MONOCYTES # (AUTO) 1.4 X10'3 (0-0.9); MONOCYTES % (AUTO) 17.1 % (2-12); NEUTROPHILS # (AUTO) 5.7 X10'3 (1.8-7.7); NEUTROPHILS % (AUTO) 68.4 % (42-75); PLATELET COUNT 440 X10'3 (140-440); RED BLOOD COUNT 3.49 X10'6 (4.70-6.10); RED CELL DISTRIBUTION WIDTH 16.3 % (11.5-14.5); WHITE BLOOD COUNT 8.3 X10'3 (4.5-11.0)
[2021-01-04 07:03] LABS: ALANINE AMINOTRANSFERASE 59 U/L (12-78); ALBUMIN/GLOBULIN RATIO 0.5 (1.1-1.5); ALKALINE PHOSPHATASE 95 IU/L (46-116); ANION GAP 11 (8-16); ASPARTATE AMINO TRANSFERASE 54 U/L (10-37); BILIRUBIN,TOTAL 0.8 MG/DL (0.1-1.0); BLOOD UREA NITROGEN 39 MG/DL (7-18); BUN/CREATININE RATIO 7.1 (5.4-32.0); CALCIUM 10.8 MG/DL (8.5-10.1); CHLORIDE 98 MMOL/L (99-107); CREATININE 5.52 MG/DL (0.60-1.10); GLUCOSE 90 MG/DL (70-104); POTASSIUM 4.6 MMOL/L (3.5-5.1); SODIUM 134 MMOL/L (135-145); TOTAL CARBON DIOXIDE 25.5 MMOL/L (24-32); TOTAL PROTEIN 6.4 G/DL (6.4-8.2); eGFR 11 ML/MIN
[2021-01-04] MEDS: lansoprazole 15mg solutab PO SCH (08:01)
[2021-01-04] MEDS: docusate sodium 100mg/10ml UD cup PO SCH (08:01)
[2021-01-04] MEDS: amLODIPine 5mg tablet PO SCH (08:02)
[2021-01-04 09:36] VITALS: BP 174/99
--- NOTE | 2021-01-04 10:01 | NUR ---
PAGER ID: [phone] MESSAGE: [id number]: David Kahn: Pt only has amlodipine for BP. Recent SBP have been 170-180 with DBP in 100s. Would you like a to give another rx? -Brittany [phone]
[2021-01-04] MEDS ORDERED: NOR5T PO (10:36)
[2021-01-04] MEDS ORDERED: amLODIPine 5mg tablet PO ONE (10:55)
[2021-01-04 11:46] LABS: TOTAL CELLS COUNTED 100
[2021-01-04 11:49] LABS: ANISOCYTOSIS 1+; PLATELET ESTIMATE NORMAL
[2021-01-04 11:50] LABS: BURR CELLS FEW; SCHISTOCYTES FEW
[2021-01-04 12:00] VITALS: BP 161/105
--- NOTE | 2021-01-04 12:00 | NUR ---
Per Rogers give a one time dose of 5mg amlodipine
--- NOTE | 2021-01-04 14:04 | NUR ---
PAGER ID: [phone] MESSAGE: [id number]: David Kahn: Pt SBP remains in the 160s and SBP in the 100s after another dose of amlodipine. HR continue to be in the 110s/120s -regine [phone]
[2021-01-04] MEDS: acetaminophen 325mg tablet PO PRN (16:15)
--- NOTE | 2021-01-04 16:41 | NUR ---
Problems reprioritized. Patient report given, questions answered & plan of care reviewed with FAY Salazar at [facility].
--- NOTE | 2021-01-04 17:29 | NUR ---
Pt stable for transfer to [facility] by [facility]. Pt taken downstairs via gurney. No belongings found in room, nor were there any known belongings documented during admission. If found, will give belongings to structural welder to transport to patient. Extended PIV and TDC remain intact and sent with pt to [facility].
== END 2021-01-04 18:15 | DRG 720 ==
LOC: ER 14:22 → ED HOLD 21:12 → EDBD 21:12 → CICU 2S 21:39 → SUR 3N 12-23 16:50
PROVIDERS: ADMIT Internal Medicine; ATTEND Internal Medicine
PROC: 5A1955Z Respiratory Ventilation, Greater than 96 Consecutive Hours (ICD-10-PCS; principal; 2020-12-17)
PROC: 0BH17EZ Insertion of Endotracheal Airway into Trachea, Via Natural or Artificial Opening (ICD-10-PCS; 2020-12-17)
PROC: 4A10X4Z Monitoring of Central Nervous Electrical Activity, External Approach (ICD-10-PCS; 2020-12-20)
PROC: 5A1D70Z Performance of Urinary Filtration, Intermittent, Less than 6 Hours Per Day (ICD-10-PCS; 2020-12-20)
PROC: 5A1D70Z Performance of Urinary Filtration, Intermittent, Less than 6 Hours Per Day (ICD-10-PCS; 2020-12-21)
PROC: 0JH63XZ Insertion of Tunneled Vascular Access Device into Chest Subcutaneous Tissue and Fascia, Percutaneous Approach (ICD-10-PCS; 2020-12-23)
PROC: 02HV33Z Insertion of Infusion Device into Superior Vena Cava, Percutaneous Approach (ICD-10-PCS; 2020-12-23)
PROC: B548ZZA Ultrasonography of Superior Vena Cava, Guidance (ICD-10-PCS; 2020-12-23)
PROC: B5181ZA Fluoroscopy of Superior Vena Cava using Low Osmolar Contrast, Guidance (ICD-10-PCS; 2020-12-23)
PROC: 5A1D70Z Performance of Urinary Filtration, Intermittent, Less than 6 Hours Per Day (ICD-10-PCS; 2020-12-23)
PROC: 5A1D70Z Performance of Urinary Filtration, Intermittent, Less than 6 Hours Per Day (ICD-10-PCS; 2020-12-25)
PROC: 5A1D70Z Performance of Urinary Filtration, Intermittent, Less than 6 Hours Per Day (ICD-10-PCS; 2020-12-25)
PROC: 5A1D70Z Performance of Urinary Filtration, Intermittent, Less than 6 Hours Per Day (ICD-10-PCS; 2020-12-27)
PROC: 5A1D70Z Performance of Urinary Filtration, Intermittent, Less than 6 Hours Per Day (ICD-10-PCS; 2020-12-29)
PROC: 5A1D70Z Performance of Urinary Filtration, Intermittent, Less than 6 Hours Per Day (ICD-10-PCS; 2020-12-31)
PROC: 5A1D70Z Performance of Urinary Filtration, Intermittent, Less than 6 Hours Per Day (ICD-10-PCS; 2021-01-03)
DX: A41.9 Sepsis, unspecified organism (principal); J96.01 Acute respiratory failure with hypoxia; K72.00 Acute and subacute hepatic failure without coma; N17.0 Acute kidney failure with tubular necrosis; G92 Toxic encephalopathy; D69.6 Thrombocytopenia, unspecified; E83.51 Hypocalcemia; E87.5 Hyperkalemia; J93.9 Pneumothorax, unspecified; I12.9 Hypertensive chronic kidney disease with stage 1 through stage 4 chronic kidney disease, or unspecified chronic kidney disease; D63.8 Anemia in other chronic diseases classified elsewhere; R41.0 Disorientation, unspecified; I44.7 Left bundle-branch block, unspecified; N18.9 Chronic kidney disease, unspecified; F15.10 Other stimulant abuse, uncomplicated; M62.82 Rhabdomyolysis; Z99.2 Dependence on renal dialysis; Z78.1 Physical restraint status; Z59.0 Homelessness
CPT/HCPCS: 36415; 36558; 36600; 70450; 71045; 74018; 76937; 80048; 80053; 80202; 80305; 80320; 80329; 81001; 82330; 82550; 82570; 82803; 82948; 83036; 83540; 83550; 83605; 83735; 84100; 84133; 84134; 84145; 84156; 84300; 84443; 84478; 84540; 85007; 85008; 85018; 85025; 85027; 85610; 87040; 87070; 87088; 87340; 92508; 92616; 93005; 94002; 94003; 94640; 94760; 94799; 95816; 97110; 97161; 97530; 99152; 99153; 99291; 99292; A9270; C1750; C1769; C1894; C9113; G0257; G0378; J0696; J1644; J1720; J1815; J1940; J2060; J2150; J2250; J2405; J2543; J2704; J3010; J3370; J3480; J7030; J7050; J7070; J7120; Q4081

== ENCOUNTER 2022-01-13 08:22 | Emergency (ER) | payer MEDICAID ==
[~2022-01-13] VITALS: Ht 172.7 cm; Wt 77.0 kg
[~2022-01-13 08:22] MED LIST changes: +ACET325T57 PO; +ALBU50IV IV; +DILT60TA41 PO; +DOCU100C40 PO; +DOCU283E RC; +EPOE200015 IV; +ESOM20CA PO; +HYDR-3965 PO; -HYDR-3972 PO; +LACT10SO3 PO; +ONDA4DIS4 IV; +POLY17PO10 PO; +SEVE800T8 PO; +[UNRECOGNIZED DRUG - CODE] IV; -dextrose 50%-water 50ml dispensing syringe IV ONE
--- NOTE | 2022-01-13 11:15 | NUR ---
Pt d/c hocme via ambulatory in good condition,instructions given,pt verbalized understanding.
[2022-01-13 11:17] VITALS: BP 103/69
== END 2022-01-13 11:19 | disposition home or self-care (01) ==
LOC: ER 08:23
DX: M76.61 Achilles tendinitis, right leg (principal); I10 Essential (primary) hypertension; Z87.19 Personal history of other diseases of the digestive system; F12.10 Cannabis abuse, uncomplicated; Z59.00 Homelessness unspecified; Z56.0 Unemployment, unspecified; Z88.0 Allergy status to penicillin; Z79.899 Other long term (current) drug therapy
CPT/HCPCS: 73630; 99284; L4360